=== PATIENT | male | born 1945 | race African-American/Black ===

== ENCOUNTER 2016-12-15 05:00 | Inpatient (IN) ==
--- NOTE | 2016-12-13 09:37 | Cardiothoracic History & Phys ---
History of Present Illness Chief complaint: Shortness of breath History of present illness: Mr. Blanco is a 71 year old male who presented to [facility] about 10 days ago with symptoms of shortness of breath and chest discomfort. He was found on initial examination to have suggestion of a right upper lobe pneumonia the patient was admitted for further treatment. He was admitted for pulmonary toilet and antibiotic therapy with significant improvement in his symptoms. Because of his history of possible exertionally related chest pain patient was advised to have cardiac catheterization which was carried out which demonstrated moderate to severe left main coronary disease and the presence of a totally occluded right coronary artery. Patient was advised to have bypass surgery and is transferred to our hospital for that purpose. Past medical history is significant and the patient has had a right nephrectomy for uncertain reasons but presumably for cancer. He has otherwise been in reasonably good health. He has no known allergies and does not drink alcohol or smoke cigarettes. He is on no cardiac medications at home. Review of systems is noncontributory and family history does show a history of cancer and heart disease. Physical examination: Patient is well-developed well-nourished -[place] man in no acute distress. Examination of head eyes ears nose and throat showed pupils are equal react to light extraocular motions are intact and the oropharynx is benign. Termination of the neck shows no masses and there is no thyromegaly and there are no bruits. Examination of the chest shows some diffuse rhonchi but otherwise is clear to percussion and auscultation. Examination of the heart reveals regular sinus rhythm with no murmurs or gallop rhythm. Examination of the abdomen shows no masses and there is no organomegaly appreciated. There is no tenderness. Examination extremities shows no cyanosis or edema. Examination of the neurological system is grossly within normal limits. Assessment: Coronary artery disease including left main coronary involvement. Plan: Coronary bypass surgery Saturday, December 17, 2016.
[~2016-12-15 05:00] MED LIST: DEXTROSE 50% 25 GM/50 ML VIAL IV PRN; GLUCAGON 1 MG VIAL IM PRN
[2016-12-15] MEDS ORDERED: SODIUM CHLORIDE 0.9% 1,000 ML IV SCH (10:00)
[2016-12-15 18:06] LABS: Basophils # 0.1 10*3/uL (0.0-0.2); Basophils % 0.9 % (0.0-0.8); Eosinophils # 0.2 10*3/uL (0.0-0.87); Eosinophils % 3.1 % (0.00-10.9); Hemoglobin 11.2 GM/DL (14.0-18.0); Immature Granulocytes % 0.1 %; Immature Granulocytes Absolute 0.01 #; Lymphocytes # 2.4 10*3/uL (1.4-4.0); Lymphocytes % 32.5 % (21.2-54.2); Mean Corpuscular HGB Conc 31.1 GM/DL (32-36); Mean Corpuscular Hemoglobin 27 PG (27-34); Mean Corpuscular Volume 87.2 FL (87-102); Mean Platelet Volume 10.3 FL (9.6-12.0); Monocytes # 1.2 10*3/uL (0.11-0.8); Monocytes % 16.6 % (1.7-12.7); Neutrophils # 3.5 10*3/uL (1.4-7.4); Neutrophils % 46.8 % (38.7-73.9); Platelet Count 383 T/CUMM (130-400); Red Blood Count 4.13 MC/CUMM (3.8-5.5); White Blood Count 7.5 T/CUMM (4-12)
[2016-12-15 18:36] LABS: Alanine Aminotransferase 68 U/L (16-61); Alkaline Phosphatase 94 U/L (45-117); Aspartate Amino Transferase 46 U/L (0-37); Bilirubin,Total < 0.39 MG/DL (0.2-1.0); Blood Urea Nitrogen 23 MG/DL (7-18); Calcium 8.5 MG/DL (8.5-10.1); Glucose 260 MG/DL (74-106); Osmolality,Calculated 276.5 MOS/KG (273-304); Potassium 4.6 MMOL/L (3.5-5.1); Sodium 132 MMOL/L (136-145); Total Protein 7.5 G/DL (6.4-8.3)
--- NOTE | 2016-12-15 18:48 | XRay Report ---
XR chest 2V Date: 12/15/2016 9:45 AM History: Coronary artery disease Comparison: None Technique: PA and lateral chest Findings: The heart is minimally enlarged with left ventricular prominence uncoiling of the aorta. Minimal relative elevation of the right hemidiaphragm. Probable chronic scarring in the lungs. Faint small noncalcified density in the right midlung zone. Unremarkable mediastinum with degenerative changes. Impression: Cardiomegaly with left ventricular prominence and uncoiling of the aorta which may be related to hypertensive cardiovascular disease. Probable chronic scarring scarring. Faint small noncalcified nodular density in the right midlung zone which may relate to chronic scarring . But follow-up chest x-ray is recommended for further evaluation of this small finding. PROCEDURE INTERPRETED AT [facility] DEPARTMENT OF RADIOLOGY Final Report Signed by: Dr. Shanta Hicks
[2016-12-15 19:54] LABS: Eosinophils 1 % (0-10); Lymphocytes 36 % (20-55); Platelet Estimate Normal; Segmented Neutrophils 53 % (50-85); Total Cells Counted 100
[2016-12-15] MEDS: CEFEPIME 1,000 MG in SODIUM CHLORIDE 0.9% 100 ML IV SCH (21:07)
--- NOTE | 2016-12-16 08:06 | Cardiothoracic Progress Note ---
Cardiothoracic Subjective Interval history: Patient is ready for bypass surgery in the morning. His chest x-ray looks clear to me and his blood work all his within normal limits. Exam (Progress Note) - Constitutional Vitals: Period Temp Pulse Resp BP Sys/Meza Pulse Ox Last 24 Hr 97.9 F-98.8 F 80-99 16-20 109-161/70-86 92-98 Result/EKG - Labs CBC & BMP: 12/15/16 17:04 12/15/16 17:04 Labs: Laboratory Results - last 24 hr 12/15/16 12/15/16 17:04 17:04 WBC 7.5 RBC 4.13 Hgb 11.2 L Hct 36.0 L MCV 87.2 MCH 27 MCHC 31.1 L RDW 14.0 Plt Count 383 MPV 10.3 Neut % (Auto) 46.8 Lymph % (Auto) 32.5 [facility] % (Auto) 16.6 H Eos % (Auto) 3.1 Baso % (Auto) 0.9 H Neut # (Auto) 3.5 Lymph # (Auto) 2.4 [facility] # (Auto) 1.2 H Eos # (Auto) 0.2 Baso # (Auto) 0.1 Total Counted 100 Immature Gran % 0.1 Nucleated RBC % 0.0 Immature Gran # 0.01 Segmented Neutrophils 53 Lymphocytes 36 Monocytes 10 Eosinophils 1 Nucleated RBCs # 0.00 Platelet Estimate Normal Sodium 132 L Potassium 4.6 Chloride 95 L Carbon Dioxide 30 Anion Gap 11.6 BUN 23 H Creatinine 1.50 H GFR Calculation 68 BUN/Creatinine Ratio 15.00 Glucose 260 H Calculated Osmolality 276.5 Calcium 8.5 Total Bilirubin < 0.39 AST 46 H ALT 68 H Alkaline Phosphatase 94 Total Protein 7.5 Albumin 3.0 L Globulin 4.5 H Albumin/Globulin Ratio 0.6 L Quality Measures - VTE Contraindication to Pharmacological VTE Prophylaxis: High Risk of Bleeding
[2016-12-16] MEDS ORDERED: PANTOPRAZOLE 40 MG TABLET PO ONE (08:25)
[2016-12-16] MEDS ORDERED: ALBUTEROL 2.5 MG/3 ML NEB RESP TX ONE (08:25)
[2016-12-16] MEDS ORDERED: LORazepam 1 MG TABLET PO ONE (08:25)
[2016-12-16] MEDS ORDERED: LACTATED RINGERS 1,000 ML IV SCH (08:30)
[2016-12-16] MEDS ORDERED: LACTULOSE 20 GM/30 ML UDCUP PO PRN (08:44)
[2016-12-16] MEDS: CEFEPIME 1,000 MG in SODIUM CHLORIDE 0.9% 100 ML IV SCH ×2 (09:13→22:45)
[2016-12-16] MEDS: CHLORHEXIDINE 0.12% ORAL RINSE 60 ML BOTTLE SWISH/SPIT SCH ×2 (09:14→21:00)
[2016-12-16] MEDS: CHLORHEXIDINE 4% SOLN 118 ML BOTTLE TOP SCH ×2 (20:59→23:00)
[2016-12-17] MEDS: CHLORHEXIDINE 4% SOLN 118 ML BOTTLE TOP SCH ×2 (04:09→13:29)
[2016-12-17] MEDS ORDERED: PAPAVERINE 60 MG/2 ML VIAL ONE (04:35)
[2016-12-17] MEDS ORDERED: VANCOMYCIN 1,000 MG VIAL ONE (04:35)
[2016-12-17] MEDS ORDERED: LORazepam 1 MG TABLET ONE (05:31)
[2016-12-17] MEDS ORDERED: PANTOPRAZOLE 40 MG TABLET PO ONE (05:31)
[2016-12-17] MEDS ORDERED: TISSUE ADHESIVE 1 EACH APPLICATOR TOP ONE (05:39)
[2016-12-17] MEDS ORDERED: CEFUROXIME INJ 1,500 MG in SODIUM CHLORIDE 0.9% 100 ML IV ONE (06:00)
[2016-12-17] MEDS ORDERED: ALBUTEROL 2.5 MG/3 ML NEB RESP TX ONE (06:00)
[2016-12-17] MEDS ORDERED: SODIUM CHLORIDE 0.9% 1,000 ML IV SCH (06:00)
[2016-12-17] MEDS ORDERED: AMINOCAPROIC ACID 5,000 MG/20 ML VIAL IV ONE ×2 (06:47→12:41)
[2016-12-17] MEDS ORDERED: NITROGLYCERIN 50 MG/250 ML BOTTLE IV ONE (06:47)
[2016-12-17] MEDS ORDERED: PHENYLEPHRINE 20 MG/250 ML PREMIX IV ONE (06:47)
[2016-12-17] MEDS ORDERED: MINERAL OIL/PETROLATUM OPH OINT 3.5 GM TUBE ONE ×2 (06:47→12:43)
[2016-12-17] MEDS ORDERED: HEPARIN 1,000 UNIT/1 ML VIAL ONE (06:47)
[2016-12-17] MEDS ORDERED: CALCIUM CHLORIDE 1,000 MG/10 ML SYRINGE IV ONE ×3 (06:47→12:41)
[2016-12-17] MEDS ORDERED: ETOMIDATE 20 MG/10 ML VIAL IV ONE ×2 (06:47→12:43)
[2016-12-17] MEDS ORDERED: VECURONIUM 10 MG VIAL IV ONE ×2 (06:47→12:43)
[2016-12-17] MEDS ORDERED: PHENYLEPHRINE DRIP 40 MG/250 ML PREMIX IV ONE (07:23)
[2016-12-17] MEDS ORDERED: NITROPRUSSIDE 50 MG/2 ML VIAL ONE ×2 (07:23→07:25)
[2016-12-17] MEDS ORDERED: POTASSIUM CHLORIDE RIDER 100 ML IV ONE (07:24)
[2016-12-17 07:47] LABS: ABG HCO3 26.2 MMOL/L (20-26); ABG PH 7.479 (7.35-7.45); ABG TCO2 22.9 MMOL/L (23-27); Glucose Heart Surgery 159 MG/DL (74-106); Hematocrit Heart Surgery 30.7 PERCENT (42-52); Hemoglobin Heart Surgery 9.9 G/DL (14.0-18.0); Ionized Calcium Arterial 1.13 MMOL/L (1.21-1.46); PH Patient Temp Arterial 7.479; Patient Temperature 37 CELCIUS; Potassium Heart/CVR 3.8 MMOL/L (3.5-5.1); Sodium Heart/CVR 136 MMOL/L (135-145)
[2016-12-17 07:57] LABS: Apearance,Urine CLEAR (Clear); Bilirubin,Urine Negative (Negative); Blood, Urine Negative (Negative); Glucose,Urine (UA) 50 mg/dL (Negative); Ketones,Urine Negative (Negative); Mucus,Urine Occasional /LPF (Occasional); Nitrite,Urine Negative (Negative); Protein,Urine Negative; RBC,Urine 1 /HPF (0-4); Squamous Epithelial Cell,Urine Occasional /HPF (0-10); Urine Color Straw (Yellow); Urine Specific Gravity 1.008 (1.001-1.035); Urine Urobilinogen < 2.0 EU/DL (0.2-1.0); WBC,Urine <1 /HPF (0-6)
[2016-12-17 09:07] LABS: Hemoglobin Heart Surgery 8.7 G/DL (14.0-18.0); PCO2 Patient Temp Venous 37.8 MM HG; PH Patient Temp Venous 7.478; PO2 Patient Temp Venous 39.7 MM HG; Potassium Heart/CVR 4.1 MMOL/L (3.5-5.1); VBG Base Excess 3.5 MEQ/L (0-4); VBG HCO3 28.2 MEQ/L (24-28); VBG PCO2 43.1 MMHG (41-51); VBG PH 7.433
[2016-12-17 09:41] LABS: Hematocrit Heart Surgery 25.6 PERCENT (42-52); Hemoglobin Heart Surgery 8.2 G/DL (14.0-18.0); PH Patient Temp Venous 7.509; PO2 Patient Temp Venous 32.6 MM HG; Potassium Heart/CVR 4.3 MMOL/L (3.5-5.1); VBG Base Excess 2.2 MEQ/L (0-4); VBG HCO3 26.1 MEQ/L (24-28); VBG Oxygen Saturation 80.9 %; VBG PCO2 37.6 MMHG (41-51); VBG PH 7.45; VBG PO2 43.1 MMHG (17-40)
[2016-12-17 10:13] LABS: Hematocrit Heart Surgery 26.4 PERCENT (42-52); Hemoglobin Heart Surgery 8.5 G/DL (14.0-18.0); PCO2 Patient Temp Venous 33.6 MM HG; PH Patient Temp Venous 7.471; PO2 Patient Temp Venous 36.6 MM HG; Potassium Heart/CVR 4.7 MMOL/L (3.5-5.1); VBG Base Excess 1.2 MEQ/L (0-4); VBG HCO3 25.2 MEQ/L (24-28); VBG Oxygen Saturation 76.7 %; VBG PCO2 35.3 MMHG (41-51); VBG PH 7.456; VBG PO2 39.2 MMHG (17-40)
[2016-12-17 10:51] LABS: ABG Base Excess -0.1 MMOL/L (-2.5-2.5); ABG HCO3 24.4 MMOL/L (20-26); ABG PCO2 37.3 MM HG (35-48); ABG TCO2 22.4 MMOL/L (23-27); Glucose Heart Surgery 267 MG/DL (74-106); Hematocrit Heart Surgery 26.7 PERCENT (42-52); Hemoglobin Heart Surgery 8.6 G/DL (14.0-18.0); Ionized Calcium Arterial 1.22 MMOL/L (1.21-1.46); PCO2 Patient Temp Arterial 37.3 MMHG; Patient Temperature 37 CELCIUS; Potassium Heart/CVR 4.1 MMOL/L (3.5-5.1); Sodium Heart/CVR 134 MMOL/L (135-145)
[2016-12-17] MEDS ORDERED: DEXTROSE 5% KCL 20 MEQ 20 MEQ/1,000 ML BAG IV ONE (10:53)
[2016-12-17] MEDS ORDERED: ALBUMIN 25% 25 GM/100 ML VIAL IV ONE (10:53)
[2016-12-17] MEDS ORDERED: PROTAMINE SULFATE 250 MG/25 ML VIAL IV ONE (10:53)
[2016-12-17] MEDS ORDERED: PHENYLEPHRINE DRIP 20 MG/250 ML PREMIX IV ONE ×2 (10:53→12:42)
[2016-12-17] MEDS ORDERED: SODIUM BICARBONATE 50 MEQ/50 ML SYRINGE IV ONE (10:53)
[2016-12-17] MEDS ORDERED: MAGNESIUM SULFATE 1 GM/2 ML VIAL ONE (10:53)
[2016-12-17] MEDS ORDERED: MANNITOL 12.5 GM/50 ML VIAL IV ONE (10:54)
[2016-12-17] MEDS ORDERED: HEPARIN 10,000 UNIT/10 ML VIAL ONE (10:54)
[2016-12-17] MEDS ORDERED: PROTAMINE SULFATE 50 MG/5 ML VIAL IV ONE ×3 (10:54→11:49)
[2016-12-17] MEDS ORDERED: methylPREDNISolone SOD SUC 1,000 MG/8 ML VIAL ONE (10:54)
[2016-12-17] MEDS ORDERED: FUROSEMIDE 20 MG/2 ML VIAL ONE (10:54)
[2016-12-17] MEDS ORDERED: POTASSIUM CHLORIDE 20 MEQ/10 ML VIAL ONE (10:55)
--- NOTE | 2016-12-17 11:17 | Hospitalist Consult Note ---
Assessment and Plan - Time spent with patient Time spent with patient: Greater than 30 minutes (1) Status post coronary artery bypass graft Status: Acute Assessment and plan: Mr. Blanco is a 71-year-old -Mal[place]ian male with history of diabetes and left nephrectomy due to kidney cancer admitted by Dr. Conner for coronary artery bypass graft. Patient's case has been discussed with Dr. Bustillo the attending hospitalist. Further recommendations to follow. Diabetes--patient's blood sugars are running high at this point in time. We will continue to monitor these. Start sliding scale insulin and restart his medicines when appropriate. We will go ahead and check an hemoglobin A1c. Hypertension--patient's blood pressures are elevated. We will continue to monitor these, feel he may have undiagnosed hypertension and he may be needed to start on something prior to discharge. Current Visit: Yes (2) Diabetes Status: Acute Current Visit: Yes (3) Hypertension Status: Acute Current Visit: Yes (4) Status post nephrectomy Status: Acute Current Visit: Yes History of Present Illness - Data of Consult Patient: new to practice Consult date: 12/17/16 Requesting Physician: Isiah Conner - Consult Narrative Reason for consult: medical management History of present illness: Mr. Blanco is a 71 year old -Mal[place]ian male with history of hypertension , diabetes, and left kidney cancer admitted by Dr. Conner from cardiothoracic surgery for coronary artery bypass grafting. Patient was already in surgery at the time of consultation so history was taken from well-versed family members that were present in the room. Collectively the brothers and sisters all state that patient lives in [place] and he was here in [place] to bury his that approximately 3 weeks ago. They state that 4 days later his 's father as well and was buried. They state he presented to [facility] not feeling well and was admitted with a right upper lobe pneumonia. He was treated with pulmonary toilet and antibiotic therapy and had improvement in his systems. Because he complained of a history of possible exertional related chest pain he was advised to have a cardiac cath which was done at [facility] the heart cath demonstrated moderate to severe left main coronary disease in the presence of a totally occluded right coronary artery. Patient was sent to [facility] for bypass surgery by Dr. Conner. Patient quit smoking and drinking approximately 30 years ago per family. Otherwise he was in relatively good health. His admission vital signs show a temp of 99.1 with blood pressure and heart rate stable. His CBC shows a mild anemia at 11.1/36. Sodium low at 132, creatinine elevated at 1.5, blood sugars running 175-260. He does have a mild elevation in his AST/ALT of 46/68 with a normal T bili. UA is negative. Dr. Conner has asked hospital medicine to assist with patient's medical management status post bypass graft. Patient's case has been discussed with Dr. Bustillo, he will be the attending hospitalist. CC: Isiah Conner MD - Home Medications and Allergies Home Medications: Home Medications Medication Instructions Recorded Confirmed Type Glimepiride 4 mg PO DAILY 12/15/16 12/15/16 History Allergies/Adverse Reactions: Allergies Allergy/AdvReac Type Severity Reaction Status Date / Time No Known Allergies Allergy Verified 12/15/16 14:50 Medical,Surgical,& Family Hx - Medical History Cardio: History of: Hypertension Endocrine: History of: Diabetes Mellitus (IDDM) Musculoskeletal: No history of: Amputation - Surgical History Thoracic Surgeries: Surgical HX of;: Kidney (Renal Surgery) Patient denies;: Organ Transplant Orthopedic Surgeries: Surgical HX of;: Orthopedic Surgery - Family History Family History: Reports;: Family Cancer, Family Heart Disease - Social History Smoking Status: Former smoker Have you smoked in the last 12 months: No Frequency of Alcohol Use: None Type of Drug Use: None Marital Status: Functional capacity: independent ambulation ROS unobtainable: due to endotracheal tube Exam - Constitutional Vitals: Period Temp Pulse Resp BP Sys/Meza Pulse Ox Last 24 Hr 97.3 F-99.1 F 85-97 16-22 125-151/78-95 95-99 Exam: Constitutional System: Sedated on the vent Head: Normocephalic, atraumatic. Ears, Nose and Throat System: No evidence of Otitis or Mastoiditis. No epistaxis or discharge Eyes System: Pupils equal, round, and reactive. Neck: Supple, without adenopathy, [No] jugular venous distention. No thyromegaly , neck mass, or prior surgery apparent. Respiratory System: Chest [clear] to auscultation. Cardiovascular System: Heart with [regular] rate and rhythm. [No] murmur. GI System: Abdomen [soft], unable to assess tenderness. [Normo]active bowel sounds present. Musculoskeletal System: limbs with [no] pedal edema. [Full] distal pulses. Neurological System: Unable to obtain Psychiatric System: Unable to obtain Results - Labs CBC & BMP: 12/17/16 11:50 12/17/16 11:50 Lab Results: I have reviewed the past 24 hour labs - Diagnostic Findings Procedure: Chest x-ray: report reviewed by me (Cardiomegaly with left ventricular prominence and uncoiling of the aorta which may be related to hypertensive cardiovascular disease. Chronic scarring. Small noncalcified nodular density in right midlung zone.) Quality Measures - VTE Contraindication to Pharmacological VTE Prophylaxis: High Risk of Bleeding
[2016-12-17] MEDS: SODIUM CHLORIDE 0.45% 1,000 ML IV SCH (11:35)
[2016-12-17] MEDS ORDERED: ONDANSETRON 4 MG/2 ML VIAL IV PRN (11:37)
[2016-12-17] MEDS ORDERED: ACETAMINOPHEN 650 MG SUPP RECTAL PRN (11:37)
[2016-12-17] MEDS ORDERED: CALCIUM CHLORIDE 1,000 MG/10 ML SYRINGE IV PRN (11:37)
[2016-12-17] MEDS ORDERED: DEXTROSE 50% 25 GM/50 ML VIAL IV PRN ×2 (11:37)
[2016-12-17] MEDS ORDERED: PHENYLEPHRINE DRIP 40 MG/250 ML PREMIX IV PRN (11:37)
[2016-12-17] MEDS ORDERED: MAGNESIUM SULF RIDER 4 GM in PREMIX 1 EACH IV PRN (11:37)
[2016-12-17] MEDS ORDERED: POTASSIUM CHLORIDE RIDER 10 MEQ in PREMIX 1 EACH IV PRN (11:37)
[2016-12-17] MEDS ORDERED: MIDAZOLAM 10 MG/2 ML VIAL IV PRN (11:37)
[2016-12-17] MEDS ORDERED: VECURONIUM 10 MG VIAL IV PRN ×2 (11:37)
[2016-12-17] MEDS ORDERED: LACTATED RINGERS 250 ML IV PRN (11:37)
[2016-12-17] MEDS ORDERED: MORPHINE 10 MG/1 ML VIAL IV PRN (11:37)
[2016-12-17] MEDS ORDERED: MAGNESIUM SULF RIDER 2 GM in PREMIX 1 EACH IV PRN (11:37)
[2016-12-17] MEDS ORDERED: INSULIN REGULAR 100 UNIT/ML IV ONE (11:37)
--- NOTE | 2016-12-17 11:44 | Operative Note ---
Date of procedure: 12/17/16 Pre-op diagnosis: Coronary artery disease Post-op diagnosis: same Procedure: Procedure: Coronary bypass grafting 3 with an internal mammary graft to the anterior descending coronary artery saphenous vein graft to the obtuse marginal and right posterior descending coronary arteries. Findings: Patient is a 71-year-old man who was admitted to [facility] with a diagnosis of pneumonia. During the course of his workup he was suspected of having ischemic coronary disease and underwent cardiac catheterization confirming a diagnosis of severe three-vessel coronary artery disease. Patient was advised to have bypass surgery was transferred for that purpose. At the time of surgery left ventricular function was noted to be essentially within normal limits and an internal mammary graft was placed to the anterior descending coronary artery which was a large vessel and free of disease at the site of anastomosis. Saphenous vein grafts were placed to the obtuse marginal and right posterior descending coronary vessels which were both of adequate size and free of disease at the site of anastomosis. Patient tolerated the procedure well and was returned to recovery in satisfactory condition. Procedure: Patient was brought to the operating room placed on the operating table in supine position. After satisfactory induction of general anesthesia the chest abdomen and legs were prepped and draped in sterile fashion. Greater saphenous vein was harvested from the left lower leg and prepared as an arterial graft. Incision in the leg was closed with 3-0 subcutaneous Monocryl and 3-0 subcuticular Monocryl. Standard sternotomy incision was made and the sternum was divided and the heart suspended in a pericardial cradle. Left internal mammary artery was dissected free and prepared as an arterial graft. Patient was prepared for cardiopulmonary bypass with systemic heparinization and cannulation of the ascending aorta and right atrium. Cardiopulmonary bypass was begun and aorta was crossclamped and the heart arrested with cardioplegia solution injected into the aortic root. Heart was protected during the period of crossclamping with topical saline slush. Distal anastomoses were constructed as noted above and then the aorta was unclamped reestablishing cardiac action. Proximal anastomoses were constructed between the influenza of the saphenous vein grafts in the ascending aorta. Following this the patient was weaned from cardiopulmonary bypass without difficulty and the heparin effect reversed with protamine and decannulation carried out with a defects in the ascending aorta and right atrium closed with 3-0 Prolene. Operative field was inspected for hemostasis and when this was considered adequate the incision was closed with interrupted stainless steel wire and the sternum and 0 Monocryl in the presternal fascia. Skin was closed with running 3 -0 subcuticular Monocryl. 2 chest tubes were left in the anterior mediastinum and brought out through separate stab incisions. Sterile dressings were applied and the patient was returned to recovery in satisfactory condition. Surgeon / Physician: Isiah Conner Estimated blood loss: other (Unable to determine because of cardiopulmonary bypass) Condition: stable Disposition: ICU Results - Labs CBC & BMP: 12/17/16 10:51 12/15/16 17:04 Discharge Plan - Discharge Medications No Action Glimepiride 4 mg PO DAILY - Follow Up or Referral - Forms/Instructions
[2016-12-17] MEDS: NITROPRUSSIDE 100 MG in DEXTROSE 5% 250 ML IV PRN (11:45)
[2016-12-17 11:59] LABS: ABG Base Excess 0.5 MMOL/L (-2.5-2.5); ABG HCO3 24.9 MMOL/L (20-26); ABG PCO2 31.1 MM HG (35-48); ABG PH 7.483 (7.35-7.45); ABG TCO2 21.3 MMOL/L (23-27); Glucose Heart Surgery 262 MG/DL (74-106); Hematocrit Heart Surgery 29.2 PERCENT (42-52); Hemoglobin Heart Surgery 9.4 G/DL (14.0-18.0); Potassium Heart/CVR 4.3 MMOL/L (3.5-5.1)
[2016-12-17] MEDS ORDERED: INSULIN REGULAR DRIP 100 ML IV SCH (12:00)
[2016-12-17] MEDS ORDERED: SODIUM CHLORIDE 0.45% 1,000 ML IV SCH (12:00)
[2016-12-17 12:05] LABS: Basophils % 0.3 % (0.0-0.8); Eosinophils # 0.1 10*3/uL (0.0-0.87); Eosinophils % 1.1 % (0.00-10.9); Hematocrit 30.4 VOL% (42.0-52.0); Hemoglobin 9.7 GM/DL (14.0-18.0); Immature Granulocytes % 0.6 %; Immature Granulocytes Absolute 0.06 #; Lymphocytes # 1.3 10*3/uL (1.4-4.0); Lymphocytes % 12.9 % (21.2-54.2); Mean Corpuscular HGB Conc 31.9 GM/DL (32-36); Mean Corpuscular Hemoglobin 28 PG (27-34); Mean Corpuscular Volume 87.1 FL (87-102); Mean Platelet Volume 9.6 FL (9.6-12.0); Monocytes # 0.6 10*3/uL (0.11-0.8); Neutrophils # 8.1 10*3/uL (1.4-7.4); Neutrophils % 79.1 % (38.7-73.9); Platelet Count 246 T/CUMM (130-400); Red Blood Count 3.49 MC/CUMM (3.8-5.5); Red Cell Distribution Width 13.8 % (9.3-17.3); White Blood Count 10.3 T/CUMM (4-12)
[2016-12-17 12:10] LABS: INR 1.3; PT Patient Result 14.2 SECS
[2016-12-17] MEDS: POTASSIUM CHLORIDE RIDER 20 MEQ in PREMIX 1 EACH IV PRN ×3 (12:30→17:21)
[2016-12-17 12:39] LABS: Albumin 2.4 G/DL (3.4-5.0); Bilirubin,Total 1.1 MG/DL (0.2-1.0); Calcium 8.1 MG/DL (8.5-10.1); Magnesium 1.8 MG/DL (1.8-2.4); Osmolality,Calculated 287.5 MOS/KG (273-304); Potassium 4.4 MMOL/L (3.5-5.1); Total Protein 5.4 G/DL (6.4-8.3)
[2016-12-17] MEDS ORDERED: SEVOFLURANE 1 UNIT/15 MINUTE INH ONE (12:42)
[2016-12-17] MEDS ORDERED: HEPARIN/NACL 0.9% 2 UNITS/ML 500 ML IV ONE (12:42)
[2016-12-17] MEDS ORDERED: NITROGLYCERIN DRIP 50 MG/250 ML BOTTLE IV ONE ×2 (12:43→12:53)
[2016-12-17] MEDS ORDERED: LACTATED RINGERS 1,000 ML IV ONE (12:43)
[2016-12-17] MEDS ORDERED: SODIUM CHLORIDE 0.9% 250 ML IV ONE (12:43)
[2016-12-17] MEDS ORDERED: SODIUM CHLORIDE 0.9% 2,000 ML IV ONE (12:43)
[2016-12-17] MEDS ORDERED: MIDAZOLAM 10 MG/2 ML VIAL ONE ×2 (12:43)
[2016-12-17] MEDS ORDERED: SUFentanil 250 MCG/5 ML AMP ONE (12:43)
[2016-12-17] MEDS ORDERED: SODIUM CHLORIDE 0.9% 100 ML IV ONE (12:43)
[2016-12-17 12:54] LABS: CKMB % 5.9 %
[2016-12-17 13:02] LABS: Troponin I Only 4.29 NG/ML (0.00-0.045)
[2016-12-17] MEDS: KETOROLAC 30 MG/1 ML VIAL IV SCH ×2 (13:06→18:13)
--- NOTE | 2016-12-17 13:09 | XRay Report ---
XR chest 1V portable Indication: Cardiac surgery, coronary artery disease, line placement Comparison: 15 December 2016 Findings: The heart and mediastinum are within normal limits of size and configuration with cardiac surgery changes. Lines and tubes appear appropriate in position. The pulmonary vascularity is increased. No lung infiltrates, effusions, pneumothorax or other abnormality is demonstrated. Impression: Interval cardiac surgery. Increased vascularity may indicate cardiac decompensation. PROCEDURE INTERPRETED AT [facility] DEPARTMENT OF RADIOLOGY Final Report Signed by: Dr. Jaden Rodrigues
[2016-12-17] MEDS: CHLORHEXIDINE 0.12% ORAL RINSE 60 ML BOTTLE SWISH/SPIT SCH ×2 (13:29→21:53)
[2016-12-17] MEDS: CEFEPIME 1,000 MG in SODIUM CHLORIDE 0.9% 100 ML IV SCH (13:29)
[2016-12-17 13:35] LABS: ABG Base Excess -3.8 MMOL/L (-2.5-2.5); ABG HCO3 21.3 MMOL/L (20-26); ABG Oxygen Saturation 99.6 % (95-100); ABG PCO2 26.1 MM HG (35-48); ABG TCO2 17.5 MMOL/L (23-27); Glucose Heart Surgery 202 MG/DL (74-106); Hematocrit Heart Surgery 26.9 PERCENT (42-52); Hemoglobin Heart Surgery 8.7 G/DL (14.0-18.0); Potassium Heart/CVR 3.7 MMOL/L (3.5-5.1)
[2016-12-17] MEDS: NITROGLYCERIN DRIP 50 MG/250 ML BOTTLE IV SCH (13:51)
[2016-12-17] MEDS: ALBUMIN 5% 12.5 GM in PREMIX 1 EACH IV PRN ×5 (13:54→23:05)
[2016-12-17] MEDS ORDERED: INSULIN LISPRO 100 UNIT/ML SUBCUT SCH (14:00)
[2016-12-17 14:23] LABS: ABG Base Excess -1.9 MMOL/L (-2.5-2.5); ABG HCO3 22.9 MMOL/L (20-26); ABG Oxygen Saturation 99.6 % (95-100); ABG PCO2 27.7 MM HG (35-48); ABG PH 7.482 (7.35-7.45); ABG TCO2 18.8 MMOL/L (23-27); Glucose Heart Surgery 208 MG/DL (74-106); Hematocrit Heart Surgery 29.8 PERCENT (42-52); Hemoglobin Heart Surgery 9.6 G/DL (14.0-18.0); Potassium Heart/CVR 4.1 MMOL/L (3.5-5.1)
[2016-12-17] MEDS: INSULIN REGULAR 100 UNIT/ML IV PRN (14:25)
[2016-12-17 15:56] LABS: ABG Base Excess -1.8 MMOL/L (-2.5-2.5); ABG HCO3 22.9 MMOL/L (20-26); ABG Oxygen Saturation 99.4 % (95-100); ABG PCO2 28.4 MM HG (35-48); ABG PH 7.475 (7.35-7.45); Glucose Heart Surgery 139 MG/DL (74-106); Hematocrit Heart Surgery 29.8 PERCENT (42-52); Hemoglobin Heart Surgery 9.6 G/DL (14.0-18.0); Potassium Heart/CVR 4.2 MMOL/L (3.5-5.1)
[2016-12-17 16:57] LABS: ABG Base Excess -1.6 MMOL/L (-2.5-2.5); ABG Oxygen Saturation 99.3 % (95-100); ABG PCO2 32.4 MM HG (35-48); ABG PH 7.438 (7.35-7.45); Glucose Heart Surgery 112 MG/DL (74-106); Hematocrit Heart Surgery 29.3 PERCENT (42-52); Hemoglobin Heart Surgery 9.5 G/DL (14.0-18.0)
[2016-12-17] MEDS: MIDAZOLAM 2 MG/2 ML VIAL IV PRN ×3 (18:11→22:17)
[2016-12-17 19:14] LABS: ABG Base Excess -1.7 MMOL/L (-2.5-2.5); ABG Oxygen Saturation 98.9 % (95-100); ABG PCO2 28.4 MM HG (35-48); ABG PH 7.475 (7.35-7.45); ABG TCO2 18.9 MMOL/L (23-27); Glucose Heart Surgery 173 MG/DL (74-106); Hematocrit Heart Surgery 31.3 PERCENT (42-52); Hemoglobin Heart Surgery 10.1 G/DL (14.0-18.0); Potassium Heart/CVR 4.5 MMOL/L (3.5-5.1)
--- NOTE | 2016-12-17 19:52 | Anesthesia Post-Op ---
Anesthesia Post OP - Post Ansesthetic Evaluation Patient seen in post op: Yes Resp: within normal limits (vent) CV: within normal limits Mental: within normal limits (sedated) Temp: within normal limits Godw-[id number]-[id number]: within normal limits Nausea and Vomiting: within normal limits Pain: within normal limits
[2016-12-17] MEDS: CEFUROXIME INJ 1,500 MG in SODIUM CHLORIDE 0.9% 100 ML IV SCH (20:40)
[2016-12-17] MEDS ORDERED: PROPOFOL 1,000 MG/100 ML BOTTLE IV ONE (21:48)
[2016-12-17 21:58] LABS: CKMB % 4.3 %
[2016-12-17 21:59] LABS: Troponin I Only 4.86 NG/ML (0.00-0.045)
[2016-12-17] MEDS ORDERED: FUROSEMIDE 40 MG/4 ML VIAL IV PRN (22:48)
[2016-12-17] MEDS ORDERED: PROPOFOL 1,000 MG/100 ML BOTTLE IV SCH (23:00)
[2016-12-17] MEDS ORDERED: FUROSEMIDE 40 MG/4 ML VIAL ONE (23:40)
[2016-12-18 00:19] LABS: ABG Base Excess 0.1 MMOL/L (-2.5-2.5); ABG HCO3 22.4 MMOL/L (20-26); ABG Oxygen Saturation 98.3 % (95-100); ABG PCO2 28.6 MM HG (35-48); ABG PH 7.511 (7.35-7.45); ABG PO2 126.1 MM HG (80-95); ABG TCO2 23.2 MMOL/L (23-27); Glucose Heart Surgery 129 MG/DL (74-106); Hemoglobin Heart Surgery 10.8 G/DL (14.0-18.0); Potassium Heart/CVR 4.2 MMOL/L (3.5-5.1)
[2016-12-18] MEDS: KETOROLAC 30 MG/1 ML VIAL IV SCH ×4 (00:29→17:40)
[2016-12-18] MEDS: POTASSIUM CHLORIDE RIDER 20 MEQ in PREMIX 1 EACH IV PRN ×3 (00:36→05:35)
[2016-12-18 02:35] LABS: ABG Base Excess -0.9 MMOL/L (-2.5-2.5); ABG HCO3 22.6 MMOL/L (20-26); ABG Oxygen Saturation 98.5 % (95-100); ABG PCO2 33.7 MM HG (35-48); ABG PH 7.445 (7.35-7.45); ABG TCO2 23.7 MMOL/L (23-27); Glucose Heart Surgery 166 MG/DL (74-106); Hemoglobin Heart Surgery 11.2 G/DL (14.0-18.0); Potassium Heart/CVR 4.6 MMOL/L (3.5-5.1)
[2016-12-18 03:13] LABS: ABG Oxygen Saturation 98.2 % (95-100); ABG PCO2 34.7 MM HG (35-48); ABG PO2 128.6 MM HG (80-95); ABG TCO2 23.1 MMOL/L (23-27); Glucose Heart Surgery 178 MG/DL (74-106); Hemoglobin Heart Surgery 11.3 G/DL (14.0-18.0); Potassium Heart/CVR 4.4 MMOL/L (3.5-5.1)
[2016-12-18 03:18] LABS: Basophils % 0.1 % (0.0-0.8); Hematocrit 32.4 VOL% (42.0-52.0); Hemoglobin 10.4 GM/DL (14.0-18.0); Immature Granulocytes % 0.2 %; Immature Granulocytes Absolute 0.03 #; Lymphocytes # 1.4 10*3/uL (1.4-4.0); Lymphocytes % 10.9 % (21.2-54.2); Mean Corpuscular HGB Conc 32.1 GM/DL (32-36); Mean Corpuscular Hemoglobin 28 PG (27-34); Mean Corpuscular Volume 87.3 FL (87-102); Mean Platelet Volume 9.9 FL (9.6-12.0); Monocytes # 0.6 10*3/uL (0.11-0.8); Monocytes % 4.9 % (1.7-12.7); Neutrophils # 10.5 10*3/uL (1.4-7.4); Neutrophils % 83.9 % (38.7-73.9); Platelet Count 206 T/CUMM (130-400); Red Blood Count 3.71 MC/CUMM (3.8-5.5); Red Cell Distribution Width 14.1 % (9.3-17.3); White Blood Count 12.5 T/CUMM (4-12)
[2016-12-18] MEDS: MORPHINE 2 MG/1 ML SYRINGE IV PRN (03:42)
[2016-12-18 03:52] LABS: Troponin I Only 4.32 NG/ML (0.00-0.045)
[2016-12-18 03:59] LABS: Albumin 3.1 G/DL (3.4-5.0); Bilirubin,Direct 0.4 MG/DL (0.0-0.20); Bilirubin,Total 1.3 MG/DL (0.2-1.0); Calcium 8.1 MG/DL (8.5-10.1); Magnesium 1.6 MG/DL (1.8-2.4); Osmolality,Calculated 287.3 MOS/KG (273-304); Potassium 4.5 MMOL/L (3.5-5.1); Total Protein 5.9 G/DL (6.4-8.3)
[2016-12-18 05:07] LABS: ABG Base Excess -2.9 MMOL/L (-2.5-2.5); ABG Oxygen Saturation 98.6 % (95-100); ABG PCO2 38.7 MM HG (35-48); ABG PH 7.366 (7.35-7.45); ABG TCO2 20.1 MMOL/L (23-27); Glucose Heart Surgery 200 MG/DL (74-106); Hematocrit Heart Surgery 32.4 PERCENT (42-52); Hemoglobin Heart Surgery 10.5 G/DL (14.0-18.0); Potassium Heart/CVR 4.2 MMOL/L (3.5-5.1)
[2016-12-18 05:35] LABS: Platelet Estimate Normal
[2016-12-18] MEDS: INSULIN REGULAR 100 UNIT/ML IV PRN (06:14)
--- NOTE | 2016-12-18 06:18 | Cardiothoracic Progress Note ---
Cardiothoracic Subjective Interval history: Patient is awake and responsive but still intubated. He was confused and disoriented upon awakening during the night but appears much better this morning. He is weaning from the ventilator. Vital signs have been stable and his cardiac output is 4 L to 5 L/min. Blood gases are satisfactory. Urine output has been good and creatinine is 1.4 which is around baseline. Chest tube drainage is minimal but I am going to wait until he is off the ventilator to remove his chest tubes. We will keep in intensive care for now until he is weaned from the ventilator. Exam (Progress Note) - Constitutional Vitals: Period Temp Pulse Resp BP Sys/Meza Pulse Ox Last 24 Hr 96.8 F-98.8 F 76-91 10-15 106-159/48-90 97-99 Result/EKG - Labs CBC & BMP: 12/18/16 03:00 12/18/16 03:00 Labs: Laboratory Results - last 24 hr 12/16/16 12/17/16 12/17/16 09:16 07:30 07:42 WBC RBC Hgb Hct MCV MCH MCHC RDW Plt Count 93 L D MPV Neut % (Auto) Lymph % (Auto) [place] % (Auto) Eos % (Auto) Baso % (Auto) Neut # (Auto) Lymph # (Auto) [place] # (Auto) Eos # (Auto) Baso # (Auto) Immature Gran % Nucleated RBC % Immature Gran # Nucleated RBCs # Platelet Estimate Anisocytosis INR PT Patient/Control Mix Circ Anticoag PTT Patient Temperature ABG pH ABG pH at Pt Temp ABG pCO2 ABG pCO2 at Pt Temp ABG pO2 ABG pO2 at Pt Temp ABG HCO3 ABG Total CO2 ABG O2 Saturation ABG Base Excess ABG Sodium VBG pH VBG pCO2 VBG pO2 VBG HCO3 VBG Total CO2 VBG O2 Saturation VBG Base Excess Hemoglobin Hematocrit Potassium Glucose Ionized Calcium FiO2 Sodium Chloride Carbon Dioxide Anion Gap BUN Creatinine GFR Calculation BUN/Creatinine Ratio Calculated Osmolality Calcium Venous Ioniz Calcium Magnesium Total Bilirubin Direct Bilirubin AST ALT Alkaline Phosphatase Total Creatine Kinase CK-MB (CK-2) CK and CKMB Interp Troponin I Total Protein Albumin Globulin Albumin/Globulin Ratio Urine Color Straw Urine Appearance Clear Urine pH 7.0 Ur Specific [place] 1.008 Urine Protein Negative Urine Glucose (UA) 50 Urine Ketones Negative Urine Blood Negative Urine Nitrate Negative Urine Bilirubin Negative Urine Urobilinogen < 2.0 H Urine Leukocytes Negative Urine RBC 1 Urine WBC <1 Ur Squamous Epith Cells Occasional Urine Mucus Occasional Ur Culture Indicated? Not indicated Blood Type A POSITIVE Antibody Screen Negative Crossmatch See Detail 12/17/16 12/17/16 12/17/16 07:42 09:05 09:35 WBC RBC Hgb Hct MCV MCH MCHC RDW Plt Count MPV Neut % (Auto) Lymph % (Auto) [place] % (Auto) Eos % (Auto) Baso % (Auto) Neut # (Auto) Lymph # (Auto) [place] # (Auto) Eos # (Auto) Baso # (Auto) Immature Gran % Nucleated RBC % Immature Gran # Nucleated RBCs # Platelet Estimate Anisocytosis INR PT Patient/Control Mix Circ Anticoag PTT Patient Temperature 37 34 33 ABG pH 7.479 H ABG pH at Pt Temp 7.479 7.478 7.509 ABG pCO2 34.0 L ABG pCO2 at Pt Temp 34.0 37.8 31.0 ABG pO2 481.0 H ABG pO2 at Pt Temp 481.0 39.7 32.6 ABG HCO3 26.2 H ABG Total CO2 22.9 L ABG O2 Saturation 100.0 ABG Base Excess 2.0 ABG Sodium 136 130 L 132 L VBG pH 7.433 7.450 VBG pCO2 43.1 37.6 L VBG pO2 49.0 H 43.1 H VBG HCO3 28.2 H 26.1 VBG Total CO2 29.5 24.3 VBG O2 Saturation 84.0 80.9 VBG Base Excess 3.5 2.2 Hemoglobin 9.9 L 8.7 L 8.2 L Hematocrit 30.7 L 26.0 L 25.6 L Potassium 3.8 4.1 4.3 Glucose 159 H 235 H 271 H Ionized Calcium 1.13 L FiO2 80.00 80.00 Sodium Chloride Carbon Dioxide Anion Gap BUN Creatinine GFR Calculation BUN/Creatinine Ratio Calculated Osmolality Calcium Venous Ioniz Calcium 0.96 1.03 L Magnesium Total Bilirubin Direct Bilirubin AST ALT Alkaline Phosphatase Total Creatine Kinase CK-MB (CK-2) CK and CKMB Interp Troponin I Total Protein Albumin Globulin Albumin/Globulin Ratio Urine Color Urine Appearance Urine pH Ur Specific [place] Urine Protein Urine Glucose (UA) Urine Ketones Urine Blood Urine Nitrate Urine Bilirubin Urine Urobilinogen Urine Leukocytes Urine RBC Urine WBC Ur Squamous Epith Cells Urine Mucus Ur Culture Indicated? Blood Type Antibody Screen Crossmatch 12/17/16 12/17/16 12/17/16 10:05 10:51 10:51 WBC RBC Hgb Hct MCV MCH MCHC RDW Plt Count 163 D MPV Neut % (Auto) Lymph % (Auto) [place] % (Auto) Eos % (Auto) Baso % (Auto) Neut # (Auto) Lymph # (Auto) [place] # (Auto) Eos # (Auto) Baso # (Auto) Immature Gran % Nucleated RBC % Immature Gran # Nucleated RBCs # Platelet Estimate Anisocytosis INR PT Patient/Control Mix Circ Anticoag PTT Patient Temperature 36 37 ABG pH 7.420 ABG pH at Pt Temp 7.471 7.420 ABG pCO2 37.3 ABG pCO2 at Pt Temp 33.6 37.3 ABG pO2 422.0 H ABG pO2 at Pt Temp 36.6 422.0 ABG HCO3 24.4 ABG Total CO2 22.4 L ABG O2 Saturation 100.0 ABG Base Excess -0.1 ABG Sodium 133 L 134 L VBG pH 7.456 VBG pCO2 35.3 L VBG pO2 39.2 VBG HCO3 25.2 VBG Total CO2 23.1 VBG O2 Saturation 76.7 VBG Base Excess 1.2 Hemoglobin 8.5 L 8.6 L Hematocrit 26.4 L 26.7 L Potassium 4.7 4.1 Glucose 274 H 267 H Ionized Calcium 1.22 FiO2 80.00 Sodium Chloride Carbon Dioxide Anion Gap BUN Creatinine GFR Calculation BUN/Creatinine Ratio Calculated Osmolality Calcium Venous Ioniz Calcium 1.02 L Magnesium Total Bilirubin Direct Bilirubin AST ALT Alkaline Phosphatase Total Creatine Kinase CK-MB (CK-2) CK and CKMB Interp Troponin I Total Protein Albumin Globulin Albumin/Globulin Ratio Urine Color Urine Appearance Urine pH Ur Specific [place] Urine Protein Urine Glucose (UA) Urine Ketones Urine Blood Urine Nitrate Urine Bilirubin Urine Urobilinogen Urine Leukocytes Urine RBC Urine WBC Ur Squamous Epith Cells Urine Mucus Ur Culture Indicated? Blood Type Antibody Screen Crossmatch 12/17/16 12/17/16 12/17/16 11:50 11:50 11:50 WBC 10.3 D RBC 3.49 L Hgb 9.7 L Hct 30.4 L MCV 87.1 MCH 28 MCHC 31.9 L RDW 13.8 Plt Count 246 D MPV 9.6 Neut % (Auto) 79.1 H Lymph % (Auto) 12.9 L [place] % (Auto) 6.0 Eos % (Auto) 1.1 Baso % (Auto) 0.3 Neut # (Auto) 8.1 H Lymph # (Auto) 1.3 L [place] # (Auto) 0.6 Eos # (Auto) 0.1 Baso # (Auto) 0.0 Immature Gran % 0.6 Nucleated RBC % 0.0 Immature Gran # 0.06 Nucleated RBCs # 0.00 Platelet Estimate Anisocytosis INR 1.3 PT Patient/Control Mix 14.2 Circ Anticoag PTT 37.0 Patient Temperature ABG pH ABG pH at Pt Temp ABG pCO2 ABG pCO2 at Pt Temp ABG pO2 ABG pO2 at Pt Temp ABG HCO3 ABG Total CO2 ABG O2 Saturation ABG Base Excess ABG Sodium VBG pH VBG pCO2 VBG pO2 VBG HCO3 VBG Total CO2 VBG O2 Saturation VBG Base Excess Hemoglobin Hematocrit Potassium 4.4 Glucose 265 H Ionized Calcium FiO2 Sodium 139 Chloride 105 Carbon Dioxide 25 Anion Gap 13.4 BUN 17 Creatinine 1.30 GFR Calculation 81 BUN/Creatinine Ratio 13.00 Calculated Osmolality 287.5 Calcium 8.1 L Venous Ioniz Calcium Magnesium 1.8 Total Bilirubin 1.10 H Direct Bilirubin AST 43 H ALT 45 Alkaline Phosphatase 68 Total Creatine Kinase CK-MB (CK-2) CK and CKMB Interp Troponin I Total Protein 5.4 L Albumin 2.4 L Globulin 3.0 Albumin/Globulin Ratio 0.8 L Urine Color Urine Appearance Urine pH Ur Specific [place] Urine Protein Urine Glucose (UA) Urine Ketones Urine Blood Urine Nitrate Urine Bilirubin Urine Urobilinogen Urine Leukocytes Urine RBC Urine WBC Ur Squamous Epith Cells Urine Mucus Ur Culture Indicated? Blood Type Antibody Screen Crossmatch 12/17/16 12/17/16 12/17/16 11:50 11:50 13:27 WBC RBC Hgb Hct MCV MCH MCHC RDW Plt Count MPV Neut % (Auto) Lymph % (Auto) [place] % (Auto) Eos % (Auto) Baso % (Auto) Neut # (Auto) Lymph # (Auto) [place] # (Auto) Eos # (Auto) Baso # (Auto) Immature Gran % Nucleated RBC % Immature Gran # Nucleated RBCs # Platelet Estimate Anisocytosis INR PT Patient/Control Mix Circ Anticoag PTT Patient Temperature ABG pH 7.483 H 7.470 H ABG pH at Pt Temp ABG pCO2 31.1 L 26.1 L ABG pCO2 at Pt Temp ABG pO2 347.0 H 194.0 H ABG pO2 at Pt Temp ABG HCO3 24.9 21.3 ABG Total CO2 21.3 L 17.5 L ABG O2 Saturation 100.0 99.6 ABG Base Excess 0.5 -3.8 L ABG Sodium VBG pH VBG pCO2 VBG pO2 VBG HCO3 VBG Total CO2 VBG O2 Saturation VBG Base Excess Hemoglobin 9.4 L 8.7 L Hematocrit 29.2 L 26.9 L Potassium 4.3 3.7 Glucose 262 H 202 H Ionized Calcium FiO2 Sodium Chloride Carbon Dioxide Anion Gap BUN Creatinine GFR Calculation BUN/Creatinine Ratio Calculated Osmolality Calcium Venous Ioniz Calcium Magnesium Total Bilirubin Direct Bilirubin AST ALT Alkaline Phosphatase Total Creatine Kinase 285 CK-MB (CK-2) 16.8 H CK and CKMB Interp 5.9 Troponin I 4.290 H Total Protein Albumin Globulin Albumin/Globulin Ratio Urine Color Urine Appearance Urine pH Ur Specific [place] Urine Protein Urine Glucose (UA) Urine Ketones Urine Blood Urine Nitrate Urine Bilirubin Urine Urobilinogen Urine Leukocytes Urine RBC Urine WBC Ur Squamous Epith Cells Urine Mucus Ur Culture Indicated? Blood Type Antibody Screen Crossmatch 12/17/16 12/17/16 12/17/16 14:20 15:49 16:49 WBC RBC Hgb Hct MCV MCH MCHC RDW Plt Count MPV Neut % (Auto) Lymph % (Auto) [place] % (Auto) Eos % (Auto) Baso % (Auto) Neut # (Auto) Lymph # (Auto) [place] # (Auto) Eos # (Auto) Baso # (Auto) Immature Gran % Nucleated RBC % Immature Gran # Nucleated RBCs # Platelet Estimate Anisocytosis INR PT Patient/Control Mix Circ Anticoag PTT Patient Temperature ABG pH 7.482 H 7.475 H 7.438 ABG pH at Pt Temp ABG pCO2 27.7 L 28.4 L 32.4 L ABG pCO2 at Pt Temp ABG pO2 164.0 H 142.0 H 142.0 H ABG pO2 at Pt Temp ABG HCO3 22.9 22.9 23.0 ABG Total CO2 18.8 L 19.0 L 20.0 L ABG O2 Saturation 99.6 99.4 99.3 ABG Base Excess -1.9 -1.8 -1.6 ABG Sodium VBG pH VBG pCO2 VBG pO2 VBG HCO3 VBG Total CO2 VBG O2 Saturation VBG Base Excess Hemoglobin 9.6 L 9.6 L 9.5 L Hematocrit 29.8 L 29.8 L 29.3 L Potassium 4.1 4.2 4.0 Glucose 208 H 139 H 112 H Ionized Calcium FiO2 Sodium Chloride Carbon Dioxide Anion Gap BUN Creatinine GFR Calculation BUN/Creatinine Ratio Calculated Osmolality Calcium Venous Ioniz Calcium Magnesium Total Bilirubin Direct Bilirubin AST ALT Alkaline Phosphatase Total Creatine Kinase CK-MB (CK-2) CK and CKMB Interp Troponin I Total Protein Albumin Globulin Albumin/Globulin Ratio Urine Color Urine Appearance Urine pH Ur Specific [place] Urine Protein Urine Glucose (UA) Urine Ketones Urine Blood Urine Nitrate Urine Bilirubin Urine Urobilinogen Urine Leukocytes Urine RBC Urine WBC Ur Squamous Epith Cells Urine Mucus Ur Culture Indicated? Blood Type Antibody Screen Crossmatch 12/17/16 12/17/16 12/18/16 19:09 21:08 00:15 WBC RBC Hgb Hct MCV MCH MCHC RDW Plt Count MPV Neut % (Auto) Lymph % (Auto) [place] % (Auto) Eos % (Auto) Baso % (Auto) Neut # (Auto) Lymph # (Auto) [place] # (Auto) Eos # (Auto) Baso # (Auto) Immature Gran % Nucleated RBC % Immature Gran # Nucleated RBCs # Platelet Estimate Anisocytosis INR PT Patient/Control Mix Circ Anticoag PTT Patient Temperature ABG pH 7.475 H 7.511 H ABG pH at Pt Temp ABG pCO2 28.4 L 28.6 L ABG pCO2 at Pt Temp ABG pO2 140.0 H 126.1 H ABG pO2 at Pt Temp ABG HCO3 23.0 22.4 ABG Total CO2 18.9 L 23.2 ABG O2 Saturation 98.9 98.3 ABG Base Excess -1.7 0.1 ABG Sodium VBG pH VBG pCO2 VBG pO2 VBG HCO3 VBG Total CO2 VBG O2 Saturation VBG Base Excess Hemoglobin 10.1 L 10.8 L D Hematocrit 31.3 L 32.0 L Potassium 4.5 4.2 Glucose 173 H 129 H Ionized Calcium FiO2 Sodium Chloride Carbon Dioxide Anion Gap BUN Creatinine GFR Calculation BUN/Creatinine Ratio Calculated Osmolality Calcium Venous Ioniz Calcium Magnesium Total Bilirubin Direct Bilirubin AST ALT Alkaline Phosphatase Total Creatine Kinase 286 CK-MB (CK-2) 12.2 H CK and CKMB Interp 4.3 Troponin I 4.860 H Total Protein Albumin Globulin Albumin/Globulin Ratio Urine Color Urine Appearance Urine pH Ur Specific [place] Urine Protein Urine Glucose (UA) Urine Ketones Urine Blood Urine Nitrate Urine Bilirubin Urine Urobilinogen Urine Leukocytes Urine RBC Urine WBC Ur Squamous Epith Cells Urine Mucus Ur Culture Indicated? Blood Type Antibody Screen Crossmatch 12/18/16 12/18/16 12/18/16 02:20 03:00 03:00 WBC 12.5 H RBC 3.71 L Hgb 10.4 L Hct 32.4 L MCV 87.3 MCH 28 MCHC 32.1 RDW 14.1 Plt Count 206 MPV 9.9 Neut % (Auto) 83.9 H Lymph % (Auto) 10.9 L [place] % (Auto) 4.9 Eos % (Auto) 0.0 Baso % (Auto) 0.1 Neut # (Auto) 10.5 H Lymph # (Auto) 1.4 [place] # (Auto) 0.6 Eos # (Auto) 0.0 Baso # (Auto) 0.0 Immature Gran % 0.2 Nucleated RBC % 0.0 Immature Gran # 0.03 Nucleated RBCs # 0.00 Platelet Estimate Normal Anisocytosis INR PT Patient/Control Mix Circ Anticoag PTT Patient Temperature ABG pH 7.445 ABG pH at Pt Temp ABG pCO2 33.7 L ABG pCO2 at Pt Temp ABG pO2 148.0 H ABG pO2 at Pt Temp ABG HCO3 22.6 ABG Total CO2 23.7 ABG O2 Saturation 98.5 ABG Base Excess -0.9 ABG Sodium VBG pH VBG pCO2 VBG pO2 VBG HCO3 VBG Total CO2 VBG O2 Saturation VBG Base Excess Hemoglobin 11.2 L Hematocrit 33.0 L Potassium 4.6 Glucose 166 H Ionized Calcium FiO2 Sodium Chloride Carbon Dioxide Anion Gap BUN Creatinine GFR Calculation BUN/Creatinine Ratio Calculated Osmolality Calcium Venous Ioniz Calcium Magnesium Total Bilirubin Direct Bilirubin AST ALT Alkaline Phosphatase Total Creatine Kinase 264 CK-MB (CK-2) 10.5 H CK and CKMB Interp 4.0 Troponin I 4.320 H Total Protein Albumin Globulin Albumin/Globulin Ratio Urine Color Urine Appearance Urine pH Ur Specific [place] Urine Protein Urine Glucose (UA) Urine Ketones Urine Blood Urine Nitrate Urine Bilirubin Urine Urobilinogen Urine Leukocytes Urine RBC Urine WBC Ur Squamous Epith Cells Urine Mucus Ur Culture Indicated? Blood Type Antibody Screen Crossmatch 12/18/16 12/18/16 12/18/16 03:00 03:00 05:00 WBC RBC Hgb Hct MCV MCH MCHC RDW Plt Count MPV Neut % (Auto) Lymph % (Auto) [place] % (Auto) Eos % (Auto) Baso % (Auto) Neut # (Auto) Lymph # (Auto) [place] # (Auto) Eos # (Auto) Baso # (Auto) Immature Gran % Nucleated RBC % Immature Gran # Nucleated RBCs # Platelet Estimate Anisocytosis INR PT Patient/Control Mix Circ Anticoag PTT Patient Temperature ABG pH 7.420 7.366 ABG pH at Pt Temp ABG pCO2 34.7 L 38.7 ABG pCO2 at Pt Temp ABG pO2 128.6 H 135.0 H ABG pO2 at Pt Temp ABG HCO3 22.0 22.0 ABG Total CO2 23.1 20.1 L ABG O2 Saturation 98.2 98.6 ABG Base Excess -2.0 -2.9 L ABG Sodium VBG pH VBG pCO2 VBG pO2 VBG HCO3 VBG Total CO2 VBG O2 Saturation VBG Base Excess Hemoglobin 11.3 L 10.5 L Hematocrit 33.0 L 32.4 L Potassium 4.5 4.4 4.2 Glucose 187 H 178 H 200 H Ionized Calcium FiO2 Sodium 141 Chloride 107 Carbon Dioxide 23 Anion Gap 15.5 H BUN 17 Creatinine 1.40 H GFR Calculation 75 BUN/Creatinine Ratio 12.00 Calculated Osmolality 287.3 Calcium 8.1 L Venous Ioniz Calcium Magnesium 1.6 L Total Bilirubin 1.30 H Direct Bilirubin 0.40 H AST 42 H ALT 40 Alkaline Phosphatase 62 Total Creatine Kinase CK-MB (CK-2) CK and CKMB Interp Troponin I Total Protein 5.9 L Albumin 3.1 L Globulin 2.8 Albumin/Globulin Ratio 1.1 Urine Color Urine Appearance Urine pH Ur Specific [place] Urine Protein Urine Glucose (UA) Urine Ketones Urine Blood Urine Nitrate Urine Bilirubin Urine Urobilinogen Urine Leukocytes Urine RBC Urine WBC Ur Squamous Epith Cells Urine Mucus Ur Culture Indicated? Blood Type Antibody Screen Crossmatch Quality Measures - VTE Contraindication to Pharmacological VTE Prophylaxis: High Risk of Bleeding
--- NOTE | 2016-12-18 06:58 | Event Note ---
Oberon-Tk catheter placed via the right subclavian vein on 12/17/2016.
[2016-12-18] MEDS: CEFUROXIME INJ 1,500 MG in SODIUM CHLORIDE 0.9% 100 ML IV SCH ×2 (07:48→20:54)
--- NOTE | 2016-12-18 07:51 | EKG Report ---
Stationary ECG Study [facility] Test Date: 12/18/2016 7:50:11 AM Pat Name: DOMINGA AGARWAL Department: Room: 104 Gender: M Print Line Supervisor: ACOSTA : [id number] Requested by: Isiah Sanchez Order Number: [id number] Reading MD: CORRINE SON Intervals [place] Rate: 89 P: 42 [place]: 192 QRS: -40 QRSD: 110 T: -9 QT: 376 QTc: 422 Interpretive Statements SINUS RHYTHM MODERATE VOLTAGE CRITERIA FOR LVH, CONSIDER NORMAL VARIANT INFERIOR MYOCARDIAL INFARCTION, OF INDETERMINATE AGE WITH POSTERIOR EXTENSION, AGE UNKNOWN Electronically Signed On 12-22-16 11:47:45 CDT by CORRINE SON [email or web address]
--- NOTE | 2016-12-18 08:22 | Hospitalist Progress Note ---
Assessment and Plan (1) Diabetes Status: Acute Assessment and plan: The patient is admitted to the hospital for bypass grafting. Blood glucose control is improved on insulin infusion. The plan is to continue infusion until the patient's extubated. 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 The patient had an episode of delirium earlier this morning but is now improved. The patient remains on the ventilator. Blood glucose is being controlled with insulin infusion and result is reasonable glucose control. Exam - Constitutional Vitals: Period Temp Pulse Resp BP Sys/Meza Pulse Ox Last 24 Hr 96.8 F-98.8 F 76-91 6-16 106-159/48-90 97-99 Exam: Constitutional System: Mild distress. No tremulousness. The patient is orally intubated and mechanically ventilated Head: Normocephalic, atraumatic. Ears, Nose and Throat System: No evidence of Otitis or Mastoiditis. No epistaxis or discharge Eyes System: Pupils equal, round, and reactive. Extraocular muscles intact. Neck: Supple, Respiratory System: Chest clear to auscultation. Recent thoracotomy Cardiovascular System: Heart with regular rate and rhythm. No murmur. GI System: Abdomen soft, nontender. Normo active bowel sounds present. Musculoskeletal System: limbs with no pedal edema. Full distal pulses. Neurological System: No discernable sensory deficit. Results - Labs CBC & BMP: 12/18/16 03:00 12/18/16 03:00 Lab Results: I have reviewed the past 24 hour labs Quality Measures - VTE Contraindication to Pharmacological VTE Prophylaxis: High Risk of Bleeding
--- NOTE | 2016-12-18 08:27 | XRay Report ---
History: Air leak in chest tube Date: 12/18/2016 Study: Chest x-ray AP portable Comparison exam: 12/17/2016 The endotracheal tube, nasogastric tube, right IJ central line, and chest drainage tubes remain in stable position. The right subclavian Oatman-Tk catheter is positioned with its tip in the distal descending left pulmonary artery. There is no pneumothorax. The cardiomediastinal silhouette is unchanged. There is mild atelectatic change in the lung bases, left more than right. The left basilar atelectasis is slightly increased. There is no increasing pleural effusion. The exam is otherwise unchanged. Impression: Supporting tubes are generally unchanged No pneumothorax Increased left lower lobe atelectasis compared to the previous study PROCEDURE INTERPRETED AT [facility] DEPARTMENT OF RADIOLOGY Final Report Signed by: Dr. Halie Clark
[2016-12-18 09:02] LABS: ABG Base Excess -0.7 MMOL/L (-2.5-2.5); ABG HCO3 24.1 MMOL/L (20-26); ABG Oxygen Saturation 98.1 % (95-100); ABG PCO2 40.2 MM HG (35-48); ABG PH 7.396 (7.35-7.45); ABG PO2 127.5 MM HG (80-95); ABG TCO2 25.4 MMOL/L (23-27); Glucose Heart Surgery 117 MG/DL (74-106); Hemoglobin Heart Surgery 11.2 G/DL (14.0-18.0); Potassium Heart/CVR 4.6 MMOL/L (3.5-5.1)
[2016-12-18] MEDS: CHLORHEXIDINE 0.12% ORAL RINSE 60 ML BOTTLE SWISH/SPIT SCH ×2 (09:22→20:55)
[2016-12-18 10:04] LABS: ABG Base Excess -1.4 MMOL/L (-2.5-2.5); ABG HCO3 23.2 MMOL/L (20-26); ABG Oxygen Saturation 98.7 % (95-100); ABG PCO2 42.2 MM HG (35-48); ABG PH 7.362 (7.35-7.45); ABG TCO2 21.7 MMOL/L (23-27); Glucose Heart Surgery 114 MG/DL (74-106); Hemoglobin Heart Surgery 10.4 G/DL (14.0-18.0); Potassium Heart/CVR 4.5 MMOL/L (3.5-5.1)
[2016-12-18] MEDS ORDERED: THROMBIN TOPICAL (RECOMBINANT) 5,000 UNIT VIAL TOP ONE (11:43)
[2016-12-18] MEDS: amLODIPine 2.5 MG TABLET PO SCH (13:21)
[2016-12-18] MEDS ORDERED: PROMETHAZINE INJ 12.5 MG in SODIUM CHLORIDE 0.9% 50 ML IV ONE (13:41)
[2016-12-18] MEDS ORDERED: METOCLOPRAMIDE 10 MG/2 ML VIAL IV PRN (13:41)
--- NOTE | 2016-12-18 13:42 | XRay Report ---
Portable chest Date: 12/18/2016 Clinical history: Postchest tube removal Comparison: 12/18/2016 Technique: Portable AP sitting chest Findings: The heart remains enlarged with recent median sternotomy. Interval removal of the endotracheal tube, nasogastric tube, mediastinal chest tubes, and Lipscomb-Tk catheter. Stable right IJ CVP line. No evidence of pneumothorax. Residual edema/ atelectasis especially in the left mid to lower lung zone with small left pleural effusion. Degenerative changes are noted. Impression: Recent median sternotomy with no pneumothorax identified following removal of the endotracheal tube, nasogastric tube, mediastinal chest tubes, and Lipscomb-Tk catheter. Reduced but persistent edema/atelectasis especially at the left lung base with small left pleural effusion. PROCEDURE INTERPRETED AT [facility] DEPARTMENT OF RADIOLOGY Final Report Signed by: Dr. Shanta Hicks
[2016-12-18 15:07] LABS: CKMB % 3.2 %
[2016-12-18 15:32] LABS: Troponin I Only 2.1 NG/ML (0.00-0.045)
[2016-12-18] MEDS: NITROPRUSSIDE 100 MG in DEXTROSE 5% 250 ML IV PRN (15:50)
[2016-12-18] MEDS: INSULIN REGULAR 100 UNIT/ML SUBCUT SCH ×2 (17:39→20:54)
[2016-12-19] MEDS: NITROGLYCERIN DRIP 50 MG/250 ML BOTTLE IV SCH (00:09)
[2016-12-19 04:46] LABS: ABG Base Excess -0.7 MMOL/L (-2.5-2.5); ABG HCO3 23.8 MMOL/L (20-26); ABG Oxygen Saturation 97.5 % (95-100); ABG PCO2 44.2 MM HG (35-48); ABG PH 7.358 (7.35-7.45); ABG TCO2 22.7 MMOL/L (23-27)
[2016-12-19 04:50] LABS: Basophils % 0.1 % (0.0-0.8); Hematocrit 33.1 VOL% (42.0-52.0); Hemoglobin 10.6 GM/DL (14.0-18.0); Immature Granulocytes % 0.7 %; Immature Granulocytes Absolute 0.05 #; Lymphocytes % 14.8 % (21.2-54.2); Mean Corpuscular Hemoglobin 28 PG (27-34); Mean Corpuscular Volume 86.4 FL (87-102); Monocytes # 1.2 10*3/uL (0.11-0.8); Monocytes % 16.9 % (1.7-12.7); Neutrophils # 4.7 10*3/uL (1.4-7.4); Neutrophils % 67.5 % (38.7-73.9); Platelet Count 221 T/CUMM (130-400); Red Blood Count 3.83 MC/CUMM (3.8-5.5); Red Cell Distribution Width 14.6 % (9.3-17.3); White Blood Count 6.9 T/CUMM (4-12)
[2016-12-19] MEDS: MORPHINE 2 MG/1 ML SYRINGE IV PRN (05:10)
[2016-12-19 05:20] LABS: Albumin 2.9 G/DL (3.4-5.0); Bilirubin,Direct 0.1 MG/DL (0.0-0.20); Bilirubin,Total 0.6 MG/DL (0.2-1.0); Calcium 8.3 MG/DL (8.5-10.1); Magnesium 2.4 MG/DL (1.8-2.4); Osmolality,Calculated 281.5 MOS/KG (273-304); Potassium 4.9 MMOL/L (3.5-5.1); Total Protein 5.7 G/DL (6.4-8.3)
[2016-12-19 05:41] LABS: Band Neutrophils 9 % (0-10); Burr Cells Slight; Hypochromasia Slight; Lymphocytes 11 % (20-55); Platelet Estimate Adequate; Segmented Neutrophils 64 % (50-85); Total Cells Counted 100
--- NOTE | 2016-12-19 06:11 | Cardiothoracic Progress Note ---
Cardiothoracic Subjective Interval history: Patient is awake alert and extubated. He had a comfortable night and his vital signs are stable this morning and is breathing comfortably. Laboratory work is essentially within normal limits for postoperative day 2. I think he can be transferred to telemetry and we will try to arrange that for later this morning. We will gradually increase his activity as tolerated. Exam (Progress Note) - Constitutional Vitals: Period Temp Pulse Resp BP Sys/Meza Pulse Ox Last 24 Hr 97.0 F-98.9 F 81-104 6-24 110-178/48-78 95-98 Result/EKG - Labs CBC & BMP: 12/19/16 04:30 12/19/16 04:30 Labs: Laboratory Results - last 24 hr 12/16/16 12/17/16 12/17/16 09:16 13:29 14:15 WBC RBC Hgb Hct MCV MCH MCHC RDW Plt Count MPV Neut % (Auto) Lymph % (Auto) [place] % (Auto) Eos % (Auto) Baso % (Auto) Neut # (Auto) Lymph # (Auto) [place] # (Auto) Eos # (Auto) Baso # (Auto) Total Counted Immature Gran % Nucleated RBC % Immature Gran # Segmented Neutrophils Band Neutrophils Lymphocytes Monocytes Nucleated RBCs # Platelet Estimate Hypochromasia [place] Cells Morphology Comment ABG pH ABG pCO2 ABG pO2 ABG HCO3 ABG Total CO2 ABG O2 Saturation ABG Base Excess Hemoglobin Hematocrit Potassium Glucose Sodium Chloride Carbon Dioxide Anion Gap BUN Creatinine GFR Calculation BUN/Creatinine Ratio POC Glucose 210 H 213 H Calculated Osmolality Calcium Magnesium Total Bilirubin Direct Bilirubin AST ALT Alkaline Phosphatase Total Creatine Kinase CK-MB (CK-2) CK and CKMB Interp Troponin I Total Protein Albumin Globulin Albumin/Globulin Ratio Blood Type A POSITIVE Antibody Screen Negative Crossmatch See Detail 12/17/16 12/17/16 12/17/16 15:20 18:12 18:38 WBC RBC Hgb Hct MCV MCH MCHC RDW Plt Count MPV Neut % (Auto) Lymph % (Auto) [place] % (Auto) Eos % (Auto) Baso % (Auto) Neut # (Auto) Lymph # (Auto) [place] # (Auto) Eos # (Auto) Baso # (Auto) Total Counted Immature Gran % Nucleated RBC % Immature Gran # Segmented Neutrophils Band Neutrophils Lymphocytes Monocytes Nucleated RBCs # Platelet Estimate Hypochromasia [place] Cells Morphology Comment ABG pH ABG pCO2 ABG pO2 ABG HCO3 ABG Total CO2 ABG O2 Saturation ABG Base Excess Hemoglobin Hematocrit Potassium Glucose Sodium Chloride Carbon Dioxide Anion Gap BUN Creatinine GFR Calculation BUN/Creatinine Ratio POC Glucose 141 H 67 L 172 H Calculated Osmolality Calcium Magnesium Total Bilirubin Direct Bilirubin AST ALT Alkaline Phosphatase Total Creatine Kinase CK-MB (CK-2) CK and CKMB Interp Troponin I Total Protein Albumin Globulin Albumin/Globulin Ratio Blood Type Antibody Screen Crossmatch 12/17/16 12/17/16 12/17/16 19:09 20:39 21:33 WBC RBC Hgb Hct MCV MCH MCHC RDW Plt Count MPV Neut % (Auto) Lymph % (Auto) [place] % (Auto) Eos % (Auto) Baso % (Auto) Neut # (Auto) Lymph # (Auto) [place] # (Auto) Eos # (Auto) Baso # (Auto) Total Counted Immature Gran % Nucleated RBC % Immature Gran # Segmented Neutrophils Band Neutrophils Lymphocytes Monocytes Nucleated RBCs # Platelet Estimate Hypochromasia [place] Cells Morphology Comment ABG pH ABG pCO2 ABG pO2 ABG HCO3 ABG Total CO2 ABG O2 Saturation ABG Base Excess Hemoglobin Hematocrit Potassium Glucose Sodium Chloride Carbon Dioxide Anion Gap BUN Creatinine GFR Calculation BUN/Creatinine Ratio POC Glucose 149 H 118 H 118 H Calculated Osmolality Calcium Magnesium Total Bilirubin Direct Bilirubin AST ALT Alkaline Phosphatase Total Creatine Kinase CK-MB (CK-2) CK and CKMB Interp Troponin I Total Protein Albumin Globulin Albumin/Globulin Ratio Blood Type Antibody Screen Crossmatch 12/17/16 12/18/16 12/18/16 22:42 00:12 04:12 WBC RBC Hgb Hct MCV MCH MCHC RDW Plt Count MPV Neut % (Auto) Lymph % (Auto) [place] % (Auto) Eos % (Auto) Baso % (Auto) Neut # (Auto) Lymph # (Auto) [place] # (Auto) Eos # (Auto) Baso # (Auto) Total Counted Immature Gran % Nucleated RBC % Immature Gran # Segmented Neutrophils Band Neutrophils Lymphocytes Monocytes Nucleated RBCs # Platelet Estimate Hypochromasia [place] Cells Morphology Comment ABG pH ABG pCO2 ABG pO2 ABG HCO3 ABG Total CO2 ABG O2 Saturation ABG Base Excess Hemoglobin Hematocrit Potassium Glucose Sodium Chloride Carbon Dioxide Anion Gap BUN Creatinine GFR Calculation BUN/Creatinine Ratio POC Glucose 95 125 H 185 H Calculated Osmolality Calcium Magnesium Total Bilirubin Direct Bilirubin AST ALT Alkaline Phosphatase Total Creatine Kinase CK-MB (CK-2) CK and CKMB Interp Troponin I Total Protein Albumin Globulin Albumin/Globulin Ratio Blood Type Antibody Screen Crossmatch 12/18/16 12/18/16 12/18/16 06:11 07:13 08:50 WBC RBC Hgb Hct MCV MCH MCHC RDW Plt Count MPV Neut % (Auto) Lymph % (Auto) [place] % (Auto) Eos % (Auto) Baso % (Auto) Neut # (Auto) Lymph # (Auto) [place] # (Auto) Eos # (Auto) Baso # (Auto) Total Counted Immature Gran % Nucleated RBC % Immature Gran # Segmented Neutrophils Band Neutrophils Lymphocytes Monocytes Nucleated RBCs # Platelet Estimate Hypochromasia [place] Cells Morphology Comment ABG pH 7.396 ABG pCO2 40.2 ABG pO2 127.5 H ABG HCO3 24.1 ABG Total CO2 25.4 ABG O2 Saturation 98.1 ABG Base Excess -0.7 Hemoglobin 11.2 L Hematocrit 33.0 L Potassium 4.6 Glucose 117 H Sodium Chloride Carbon Dioxide Anion Gap BUN Creatinine GFR Calculation BUN/Creatinine Ratio POC Glucose 182 H 136 H Calculated Osmolality Calcium Magnesium Total Bilirubin Direct Bilirubin AST ALT Alkaline Phosphatase Total Creatine Kinase CK-MB (CK-2) CK and CKMB Interp Troponin I Total Protein Albumin Globulin Albumin/Globulin Ratio Blood Type Antibody Screen Crossmatch 12/18/16 12/18/16 12/18/16 09:52 14:29 16:57 WBC RBC Hgb Hct MCV MCH MCHC RDW Plt Count MPV Neut % (Auto) Lymph % (Auto) [place] % (Auto) Eos % (Auto) Baso % (Auto) Neut # (Auto) Lymph # (Auto) [place] # (Auto) Eos # (Auto) Baso # (Auto) Total Counted Immature Gran % Nucleated RBC % Immature Gran # Segmented Neutrophils Band Neutrophils Lymphocytes Monocytes Nucleated RBCs # Platelet Estimate Hypochromasia [place] Cells Morphology Comment ABG pH 7.362 ABG pCO2 42.2 ABG pO2 126.0 H ABG HCO3 23.2 ABG Total CO2 21.7 L ABG O2 Saturation 98.7 ABG Base Excess -1.4 Hemoglobin 10.4 L Hematocrit 32.0 L Potassium 4.5 Glucose 114 H Sodium Chloride Carbon Dioxide Anion Gap BUN Creatinine GFR Calculation BUN/Creatinine Ratio POC Glucose 208 H Calculated Osmolality Calcium Magnesium Total Bilirubin Direct Bilirubin AST ALT Alkaline Phosphatase Total Creatine Kinase 238 CK-MB (CK-2) 7.5 H CK and CKMB Interp 3.2 Troponin I 2.100 H D Total Protein Albumin Globulin Albumin/Globulin Ratio Blood Type Antibody Screen Crossmatch 12/18/16 12/19/16 12/19/16 20:46 04:30 04:30 WBC 6.9 D RBC 3.83 Hgb 10.6 L Hct 33.1 L MCV 86.4 L MCH 28 MCHC 32.0 RDW 14.6 Plt Count 221 MPV 10.0 Neut % (Auto) 67.5 Lymph % (Auto) 14.8 L [place] % (Auto) 16.9 H Eos % (Auto) 0.0 Baso % (Auto) 0.1 Neut # (Auto) 4.7 Lymph # (Auto) 1.0 L [place] # (Auto) 1.2 H Eos # (Auto) 0.0 Baso # (Auto) 0.0 Total Counted 100 Immature Gran % 0.7 Nucleated RBC % 0.0 Immature Gran # 0.05 Segmented Neutrophils 64 Band Neutrophils 9 Lymphocytes 11 L Monocytes 16 H Nucleated RBCs # 0.00 Platelet Estimate Adequate Hypochromasia Slight [place] Cells Slight Morphology Comment ABG pH ABG pCO2 ABG pO2 ABG HCO3 ABG Total CO2 ABG O2 Saturation ABG Base Excess Hemoglobin Hematocrit Potassium 4.9 Glucose 135 H Sodium 139 Chloride 107 Carbon Dioxide 25 Anion Gap 11.9 BUN 22 H Creatinine 1.00 GFR Calculation 113 BUN/Creatinine Ratio 22.00 H POC Glucose 188 H Calculated Osmolality 281.5 Calcium 8.3 L Magnesium 2.4 Total Bilirubin 0.60 Direct Bilirubin 0.10 AST 25 ALT 36 Alkaline Phosphatase 61 Total Creatine Kinase CK-MB (CK-2) CK and CKMB Interp Troponin I Total Protein 5.7 L Albumin 2.9 L Globulin 2.8 Albumin/Globulin Ratio 1.0 L Blood Type Antibody Screen Crossmatch 12/19/16 04:30 WBC RBC Hgb Hct MCV MCH MCHC RDW Plt Count MPV Neut % (Auto) Lymph % (Auto) [place] % (Auto) Eos % (Auto) Baso % (Auto) Neut # (Auto) Lymph # (Auto) [place] # (Auto) Eos # (Auto) Baso # (Auto) Total Counted Immature Gran % Nucleated RBC % Immature Gran # Segmented Neutrophils Band Neutrophils Lymphocytes Monocytes Nucleated RBCs # Platelet Estimate Hypochromasia [place] Cells Morphology Comment ABG pH 7.358 ABG pCO2 44.2 ABG pO2 101.0 H ABG HCO3 23.8 ABG Total CO2 22.7 L ABG O2 Saturation 97.5 ABG Base Excess -0.7 Hemoglobin Hematocrit Potassium Glucose Sodium Chloride Carbon Dioxide Anion Gap BUN Creatinine GFR Calculation BUN/Creatinine Ratio POC Glucose Calculated Osmolality Calcium Magnesium Total Bilirubin Direct Bilirubin AST ALT Alkaline Phosphatase Total Creatine Kinase CK-MB (CK-2) CK and CKMB Interp Troponin I Total Protein Albumin Globulin Albumin/Globulin Ratio Blood Type Antibody Screen Crossmatch Quality Measures - VTE Contraindication to Pharmacological VTE Prophylaxis: High Risk of Bleeding
[2016-12-19] MEDS ORDERED: MAGNESIUM SULF RIDER 2 GM in PREMIX 1 EACH IV PRN (06:14)
[2016-12-19] MEDS ORDERED: ACETAMINOPHEN 325 MG TABLET PO PRN (06:14)
[2016-12-19] MEDS ORDERED: DEXTROSE 50% 25 GM/50 ML VIAL IV PRN ×2 (06:14)
[2016-12-19] MEDS ORDERED: POTASSIUM CHLORIDE 20 MEQ TABLET PO PRN (06:14)
[2016-12-19] MEDS ORDERED: ALUMINUM/MAGNES/SIMETH MAX STR 30 ML UDCUP PO PRN (06:14)
[2016-12-19] MEDS ORDERED: KETOROLAC 30 MG/1 ML VIAL IV PRN (06:14)
[2016-12-19] MEDS ORDERED: ONDANSETRON 4 MG/2 ML VIAL IV PRN (06:14)
[2016-12-19] MEDS ORDERED: GLUCAGON 1 MG VIAL IM PRN ×2 (06:14)
[2016-12-19] MEDS ORDERED: MAGNESIUM SULF RIDER 4 GM in PREMIX 1 EACH IV PRN (06:14)
[2016-12-19] MEDS ORDERED: ZALEPLON 5 MG CAPSULE PO PRN (06:14)
[2016-12-19] MEDS ORDERED: oxyCODONE/ACETAMINOPHEN 5-325 MG TABLET PO PRN (06:14)
[2016-12-19] MEDS: SODIUM CHLOR 0.45% KCL 20 MEQ 20 MEQ/1,000 ML BAG IV SCH (06:59)
[2016-12-19] MEDS: SODIUM CHLORIDE 0.45% 1,000 ML IV SCH (06:59)
--- NOTE | 2016-12-19 07:44 | XRay Report ---
XR chest 1V portable Indication: Chest tube removal, pneumothorax Comparison: 18 December 2016 Findings: The heart and mediastinum are stable in size and configuration with cardiac surgery changes. Right internal jugular catheter is present, unchanged in position. The pulmonary vascularity is increased with bilateral increased interstitial lung density. No other lung infiltrates, effusions, pneumothorax or other abnormality is demonstrated. Impression: Findings suggest slightly increased cardiac decompensation. PROCEDURE INTERPRETED AT [facility] DEPARTMENT OF RADIOLOGY Final Report Signed by: Dr. Jaden Rodrigues
--- NOTE | 2016-12-19 08:04 | Hospitalist Progress Note ---
Assessment and Plan (1) Diabetes Status: Acute Assessment and plan: The patient is admitted to the hospital for bypass grafting. Blood glucose control is improved on insulin infusion. The patient is now ready for transfer to the floor. He will restart glimepiride and we will use sliding scale insulin before each meal and at bedtime to maintain good glucose control. I do not see any evidence of pneumonia at this time. Current Visit: Yes Qualifiers: Diabetes mellitus type: type 2 Diabetes mellitus complication status: with hyperglycemia Diabetes mellitus half-way insulin use: without terminal operations supervisor use Qualified Code(s): E11.65 - Type 2 diabetes mellitus with hyperglycemia (2) Status post coronary artery bypass graft Status: Acute Current Visit: Yes Hospitalist: Subjective Interval history: The patient is awake alert and extubated this morning. He does not complain of cough or sputum production. The patient is afebrile. Blood glucose is well controlled. Exam - Constitutional Vitals: Period Temp Pulse Resp BP Sys/Meza Pulse Ox Last 24 Hr 97.0 F-98.9 F 81-104 12-24 110-178/48-78 95-98 Exam: Constitutional System: Mild distress. No tremulousness. Head: Normocephalic, atraumatic. Ears, Nose and Throat System: No evidence of Otitis or Mastoiditis. No epistaxis or discharge Eyes System: Pupils equal, round, and reactive. Extraocular muscles intact. Neck: Supple, Respiratory System: Chest clear to auscultation. Recent thoracotomy Cardiovascular System: Heart with regular rate and rhythm. No murmur. GI System: Abdomen soft, nontender. Normo active bowel sounds present. Musculoskeletal System: limbs with no pedal edema. Full distal pulses. Neurological System: No discernable sensory deficit. Results - Labs CBC & BMP: 12/19/16 04:30 12/19/16 04:30 Lab Results: I have reviewed the past 24 hour labs Quality Measures - VTE Contraindication to Pharmacological VTE Prophylaxis: High Risk of Bleeding Specialty Discharge - Follow Up or Referrals
[2016-12-19] MEDS: amLODIPine 2.5 MG TABLET PO SCH ×2 (09:43→17:13)
[2016-12-19] MEDS: PANTOPRAZOLE 40 MG TABLET PO SCH (09:43)
[2016-12-19] MEDS: DOCUSATE SODIUM 100 MG CAPSULE PO SCH (09:43)
[2016-12-19] MEDS: ASPIRIN EC 325 MG TABLET PO SCH (09:43)
[2016-12-19] MEDS: INSULIN REGULAR 100 UNIT/ML SUBCUT SCH ×4 (11:04→20:56)
[2016-12-19] MEDS: FERROUS SULFATE 325 MG TABLET PO SCH (11:05)
[2016-12-19] MEDS: CHLORHEXIDINE 0.12% ORAL RINSE 60 ML BOTTLE SWISH/SPIT SCH ×3 (11:16→20:56)
[2016-12-19] MEDS: GLIMEPIRIDE 4 MG TABLET PO SCH (17:16)
[2016-12-19] MEDS: ASPIRIN 325 MG TABLET PO SCH (17:16)
[2016-12-19] MEDS: ATORVASTATIN 40 MG TABLET PO SCH (20:54)
[2016-12-20 05:56] LABS: Basophils % 0.1 % (0.0-0.8); Eosinophils % 0.1 % (0.00-10.9); Hematocrit 34.7 VOL% (42.0-52.0); Hemoglobin 10.8 GM/DL (14.0-18.0); Immature Granulocytes % 0.4 %; Immature Granulocytes Absolute 0.03 #; Lymphocytes % 13.9 % (21.2-54.2); Mean Corpuscular HGB Conc 31.1 GM/DL (32-36); Mean Corpuscular Hemoglobin 28 PG (27-34); Mean Platelet Volume 9.8 FL (9.6-12.0); Monocytes % 13.5 % (1.7-12.7); Neutrophils # 5.1 10*3/uL (1.4-7.4); Platelet Count 229 T/CUMM (130-400); Red Cell Distribution Width 14.4 % (9.3-17.3); White Blood Count 7.1 T/CUMM (4-12)
[2016-12-20] MEDS ORDERED: FUROSEMIDE 40 MG/4 ML VIAL IV ONE (06:00)
[2016-12-20] MEDS: SODIUM CHLOR 0.45% KCL 20 MEQ 20 MEQ/1,000 ML BAG IV SCH (06:22)
[2016-12-20 06:30] LABS: Alanine Aminotransferase 31 U/L (16-61); Albumin 2.3 G/DL (3.4-5.0); Alkaline Phosphatase 68 U/L (45-117); Aspartate Amino Transferase 20 U/L (0-37); Bilirubin,Indirect 0.9 MG/DL (0.0-1.0); Blood Urea Nitrogen 26 MG/DL (7-18); Glucose 128 MG/DL (74-106); Magnesium 2.3 MG/DL (1.8-2.4); Osmolality,Calculated 281.7 MOS/KG (273-304); Potassium 4.6 MMOL/L (3.5-5.1); Sodium 138 MMOL/L (136-145); Total Protein 5.6 G/DL (6.4-8.3)
[2016-12-20 06:31] LABS: Troponin I Only 0.679 NG/ML (0.00-0.045)
[2016-12-20 06:54] LABS: Band Neutrophils 3 % (0-10); Lymphocytes 13 % (20-55); Platelet Estimate Normal; Segmented Neutrophils 69 % (50-85); Total Cells Counted 100
--- NOTE | 2016-12-20 08:56 | Cardiothoracic Progress Note ---
Cardiothoracic Subjective Interval history: Patient looks and feels okay. Vital signs have been stable and is breathing comfortably. He is ready to begin increasing his activity according to routine postoperative protocol. Overall his progress is satisfactory. Exam (Progress Note) - Constitutional Vitals: Period Temp Pulse Resp BP Sys/Meza Pulse Ox Last 24 Hr 97.4 F-99.0 F 81-85 18-22 113-160/68-89 96-99 Result/EKG - Labs CBC & BMP: 12/20/16 05:30 12/20/16 05:30 Labs: Laboratory Results - last 24 hr 12/18/16 12/18/16 12/18/16 08:01 11:11 12:40 WBC RBC Hgb Hct MCV MCH MCHC RDW Plt Count MPV Neut % (Auto) Lymph % (Auto) [place] % (Auto) Eos % (Auto) Baso % (Auto) Neut # (Auto) Lymph # (Auto) [place] # (Auto) Eos # (Auto) Baso # (Auto) Total Counted Immature Gran % Nucleated RBC % Immature Gran # Segmented Neutrophils Band Neutrophils Lymphocytes Monocytes Nucleated RBCs # Platelet Estimate Sodium Potassium Chloride Carbon Dioxide Anion Gap BUN Creatinine GFR Calculation BUN/Creatinine Ratio Glucose POC Glucose 113 H 81 126 H Calculated Osmolality Calcium Magnesium Total Bilirubin Direct Bilirubin Indirect Bilirubin AST ALT Alkaline Phosphatase Total Creatine Kinase CK-MB (CK-2) Troponin I Total Protein Albumin Globulin Albumin/Globulin Ratio 12/19/16 12/19/16 12/19/16 11:44 17:18 20:24 WBC RBC Hgb Hct MCV MCH MCHC RDW Plt Count MPV Neut % (Auto) Lymph % (Auto) [place] % (Auto) Eos % (Auto) Baso % (Auto) Neut # (Auto) Lymph # (Auto) [place] # (Auto) Eos # (Auto) Baso # (Auto) Total Counted Immature Gran % Nucleated RBC % Immature Gran # Segmented Neutrophils Band Neutrophils Lymphocytes Monocytes Nucleated RBCs # Platelet Estimate Sodium Potassium Chloride Carbon Dioxide Anion Gap BUN Creatinine GFR Calculation BUN/Creatinine Ratio Glucose POC Glucose 191 H 268 H 309 H Calculated Osmolality Calcium Magnesium Total Bilirubin Direct Bilirubin Indirect Bilirubin AST ALT Alkaline Phosphatase Total Creatine Kinase CK-MB (CK-2) Troponin I Total Protein Albumin Globulin Albumin/Globulin Ratio 12/20/16 12/20/16 12/20/16 05:30 05:30 07:35 WBC 7.1 RBC 3.90 Hgb 10.8 L Hct 34.7 L MCV 89.0 MCH 28 MCHC 31.1 L RDW 14.4 Plt Count 229 MPV 9.8 Neut % (Auto) 72.0 Lymph % (Auto) 13.9 L [place] % (Auto) 13.5 H Eos % (Auto) 0.1 Baso % (Auto) 0.1 Neut # (Auto) 5.1 Lymph # (Auto) 1.0 L [place] # (Auto) 1.0 H Eos # (Auto) 0.0 Baso # (Auto) 0.0 Total Counted 100 Immature Gran % 0.4 Nucleated RBC % 0.0 Immature Gran # 0.03 Segmented Neutrophils 69 Band Neutrophils 3 Lymphocytes 13 L Monocytes 15 Nucleated RBCs # 0.00 Platelet Estimate Normal Sodium 138 Potassium 4.6 Chloride 104 Carbon Dioxide 28 Anion Gap 10.6 BUN 26 H Creatinine 1.00 GFR Calculation 108 BUN/Creatinine Ratio 26.00 H Glucose 128 H POC Glucose 137 H Calculated Osmolality 281.7 Calcium 8.0 L Magnesium 2.3 Total Bilirubin 1.00 Direct Bilirubin 0.10 Indirect Bilirubin 0.9 AST 20 ALT 31 Alkaline Phosphatase 68 Total Creatine Kinase 105 D CK-MB (CK-2) 1.3 D Troponin I 0.679 H D Total Protein 5.6 L Albumin 2.3 L Globulin 3.3 Albumin/Globulin Ratio 0.6 L Quality Measures - VTE Contraindication to Pharmacological VTE Prophylaxis: High Risk of Bleeding Specialty Discharge - Follow Up or Referrals
[2016-12-20] MEDS: amLODIPine 2.5 MG TABLET PO SCH (10:43)
[2016-12-20] MEDS: DOCUSATE SODIUM 100 MG CAPSULE PO SCH (10:43)
[2016-12-20] MEDS: PANTOPRAZOLE 40 MG TABLET PO SCH (10:44)
[2016-12-20] MEDS: GLIMEPIRIDE 4 MG TABLET PO SCH (10:44)
[2016-12-20] MEDS: CHLORHEXIDINE 0.12% ORAL RINSE 60 ML BOTTLE SWISH/SPIT SCH ×2 (10:45→21:35)
[2016-12-20] MEDS: INSULIN REGULAR 100 UNIT/ML SUBCUT SCH ×4 (10:45→21:34)
[2016-12-20] MEDS: ASPIRIN 325 MG TABLET PO SCH (10:46)
[2016-12-20] MEDS: ASPIRIN EC 325 MG TABLET PO SCH (10:47)
[2016-12-20] MEDS: FERROUS SULFATE 325 MG TABLET PO SCH (12:03)
--- NOTE | 2016-12-20 12:15 | Hospitalist Progress Note ---
Assessment and Plan (1) Diabetes Status: Acute Assessment and plan: The patient is admitted to the hospital for bypass grafting. Blood glucose control is improved with oral antidiabetic medications. We will continue observation of glucometers and give sliding scale as required Current Visit: Yes Qualifiers: Diabetes mellitus type: type 2 Diabetes mellitus complication status: with hyperglycemia Diabetes mellitus exterminator helper insulin use: without exterminator helper use Qualified Code(s): E11.65 - Type 2 diabetes mellitus with hyperglycemia (2) Status post coronary artery bypass graft Status: Acute Current Visit: Yes Hospitalist: Subjective Interval history: Fasting glucose control is improving with oral antidiabetic medication. The patient did have hyperglycemia in the early portion of last night before the medications took effect. Exam - Constitutional Vitals: Period Temp Pulse Resp BP Sys/Meza Pulse Ox Last 24 Hr 97.4 F-99.0 F 81-89 16-20 113-160/71-89 97-99 Exam: Constitutional System: Mild distress. No tremulousness. Head: Normocephalic, atraumatic. Ears, Nose and Throat System: No evidence of Otitis or Mastoiditis. No epistaxis or discharge Eyes System: Pupils equal, round, and reactive. Extraocular muscles intact. Neck: Supple, Respiratory System: Chest clear to auscultation. Recent thoracotomy Cardiovascular System: Heart with regular rate and rhythm. No murmur. GI System: Abdomen soft, nontender. Normo active bowel sounds present. Musculoskeletal System: limbs with no pedal edema. Full distal pulses. Neurological System: No discernable sensory deficit. Results - Labs CBC & BMP: 12/20/16 05:30 12/20/16 05:30 Lab Results: I have reviewed the past 24 hour labs Quality Measures - VTE Contraindication to Pharmacological VTE Prophylaxis: High Risk of Bleeding Specialty Discharge - Follow Up or Referrals
--- NOTE | 2016-12-20 12:55 | XRay Report ---
History: Shortness of breath Date: 12/20/2016 Study: Chest x-ray AP portable Comparison exam: 12/19/2016 There is continued cardiomegaly. Mediastinal contours are unchanged in this patient status post prior median sternotomy. The pulmonary vasculature is borderline to minimally prominent. There is left greater than right bibasilar atelectasis, mildly improved. There is mild left pleural effusion. There is no pneumothorax. There is no new or worsening process. Osseous structures are similar. Impression: Persistent but improving bibasilar atelectasis. No adverse interval changes PROCEDURE INTERPRETED AT [facility] DEPARTMENT OF RADIOLOGY Final Report Signed by: Dr. Halie Clark
[2016-12-20] MEDS: ATORVASTATIN 40 MG TABLET PO SCH (21:34)
[2016-12-21 05:32] LABS: Basophils % 0.5 % (0.0-0.8); Eosinophils # 0.4 10*3/uL (0.0-0.87); Eosinophils % 5.4 % (0.00-10.9); Hematocrit 36.5 VOL% (42.0-52.0); Hemoglobin 11.4 GM/DL (14.0-18.0); Immature Granulocytes % 0.2 %; Immature Granulocytes Absolute 0.02 #; Lymphocytes # 1.9 10*3/uL (1.4-4.0); Lymphocytes % 23.1 % (21.2-54.2); Mean Corpuscular HGB Conc 31.2 GM/DL (32-36); Mean Corpuscular Hemoglobin 28 PG (27-34); Mean Corpuscular Volume 88.2 FL (87-102); Mean Platelet Volume 9.5 FL (9.6-12.0); Monocytes # 1.2 10*3/uL (0.11-0.8); Monocytes % 15.1 % (1.7-12.7); Neutrophils # 4.5 10*3/uL (1.4-7.4); Neutrophils % 55.7 % (38.7-73.9); Platelet Count 237 T/CUMM (130-400); Red Blood Count 4.14 MC/CUMM (3.8-5.5); Red Cell Distribution Width 14.1 % (9.3-17.3); White Blood Count 8.2 T/CUMM (4-12)
[2016-12-21 06:07] LABS: Alanine Aminotransferase 33 U/L (16-61); Albumin 2.6 G/DL (3.4-5.0); Alkaline Phosphatase 72 U/L (45-117); Aspartate Amino Transferase 19 U/L (0-37); Bilirubin,Indirect 0.7 MG/DL (0.0-1.0); Blood Urea Nitrogen 22 MG/DL (7-18); Glucose 112 MG/DL (74-106); Magnesium 2.1 MG/DL (1.8-2.4); Osmolality,Calculated 278.7 MOS/KG (273-304); Potassium 3.9 MMOL/L (3.5-5.1); Sodium 138 MMOL/L (136-145); Total Protein 5.6 G/DL (6.4-8.3)
[2016-12-21 06:09] LABS: Troponin I Only 0.485 NG/ML (0.00-0.045)
[2016-12-21 06:24] LABS: Hypochromasia 1+; Microcytosis 1+; Platelet Estimate Normal
--- NOTE | 2016-12-21 08:21 | Cardiothoracic Progress Note ---
Cardiothoracic Subjective Interval history: Patient looks and feels okay. Vital signs are stable and he is breathing comfortably. His lab work and his x-ray are essentially okay. He is gradually increasing his activity according to routine postoperative protocol. Overall his progress is satisfactory. Exam (Progress Note) - Constitutional Vitals: Period Temp Pulse Resp BP Sys/Meza Pulse Ox Last 24 Hr 98.4 F-99.2 F 83-94 16-18 99-137/69-82 91-99 Result/EKG - Labs CBC & BMP: 12/21/16 05:20 12/21/16 05:20 Labs: Laboratory Results - last 24 hr 12/20/16 12/20/16 12/20/16 07:35 11:33 15:30 WBC RBC Hgb Hct MCV MCH MCHC RDW Plt Count MPV Neut % (Auto) Lymph % (Auto) [place] % (Auto) Eos % (Auto) Baso % (Auto) Neut # (Auto) Lymph # (Auto) [place] # (Auto) Eos # (Auto) Baso # (Auto) Immature Gran % Nucleated RBC % Immature Gran # Nucleated RBCs # Platelet Estimate Hypochromasia Microcytosis Sodium Potassium Chloride Carbon Dioxide Anion Gap BUN Creatinine GFR Calculation BUN/Creatinine Ratio Glucose POC Glucose 137 H 173 H 214 H Calculated Osmolality Calcium Magnesium Total Bilirubin Direct Bilirubin Indirect Bilirubin AST ALT Alkaline Phosphatase Total Creatine Kinase CK-MB (CK-2) Troponin I Total Protein Albumin Globulin Albumin/Globulin Ratio 12/20/16 12/21/16 12/21/16 21:31 05:20 05:20 WBC 8.2 RBC 4.14 Hgb 11.4 L Hct 36.5 L MCV 88.2 MCH 28 MCHC 31.2 L RDW 14.1 Plt Count 237 MPV 9.5 L Neut % (Auto) 55.7 Lymph % (Auto) 23.1 [place] % (Auto) 15.1 H Eos % (Auto) 5.4 Baso % (Auto) 0.5 Neut # (Auto) 4.5 Lymph # (Auto) 1.9 [place] # (Auto) 1.2 H Eos # (Auto) 0.4 Baso # (Auto) 0.0 Immature Gran % 0.2 Nucleated RBC % 0.0 Immature Gran # 0.02 Nucleated RBCs # 0.00 Platelet Estimate Normal Hypochromasia 1+ Microcytosis 1+ Sodium 138 Potassium 3.9 Chloride 102 Carbon Dioxide 29 Anion Gap 10.9 BUN 22 H Creatinine 0.90 GFR Calculation 123 BUN/Creatinine Ratio 24.00 H Glucose 112 H POC Glucose 173 H Calculated Osmolality 278.7 Calcium 8.0 L Magnesium 2.1 Total Bilirubin 0.90 Direct Bilirubin 0.20 Indirect Bilirubin 0.7 AST 19 ALT 33 Alkaline Phosphatase 72 Total Creatine Kinase 84 CK-MB (CK-2) < 1.0 Troponin I 0.485 H D Total Protein 5.6 L Albumin 2.6 L Globulin 3.0 Albumin/Globulin Ratio 0.8 L Quality Measures - VTE Contraindication to Pharmacological VTE Prophylaxis: High Risk of Bleeding Specialty Discharge - Follow Up or Referrals
[2016-12-21] MEDS: ASPIRIN 325 MG TABLET PO SCH (09:58)
[2016-12-21] MEDS: DOCUSATE SODIUM 100 MG CAPSULE PO SCH (09:58)
[2016-12-21] MEDS: PANTOPRAZOLE 40 MG TABLET PO SCH (09:58)
[2016-12-21] MEDS: GLIMEPIRIDE 4 MG TABLET PO SCH (09:58)
[2016-12-21] MEDS: ASPIRIN EC 325 MG TABLET PO SCH (09:59)
[2016-12-21] MEDS: FERROUS SULFATE 325 MG TABLET PO SCH (09:59)
[2016-12-21] MEDS: amLODIPine 2.5 MG TABLET PO SCH (09:59)
[2016-12-21] MEDS: INSULIN REGULAR 100 UNIT/ML SUBCUT SCH ×4 (09:59→21:14)
--- NOTE | 2016-12-21 10:58 | XRay Report ---
History: Shortness of breath Date: 12/21/2016 Study: Chest x-ray AP portable Comparison exam: 12/20/2016 The right IJ central line is in stable satisfactory position. There is stable mild cardiomegaly. The mediastinal contours are unchanged. The patient is status post prior median sternotomy. The pulmonary vasculature is not engorged. There is continued left greater than right bibasilar atelectasis, slightly improved. There is mild left pleural effusion as before. There is no new or worsening pulmonary infiltrate. There is no pneumothorax. Osseous structures are unchanged. Impression: Slightly improved bibasilar atelectasis compared to the previous study. No adverse interval change PROCEDURE INTERPRETED AT [facility] DEPARTMENT OF RADIOLOGY Final Report Signed by: Dr. Halie Clark
--- NOTE | 2016-12-21 13:45 | Hospitalist Progress Note ---
Assessment and Plan (1) Diabetes Status: Acute Assessment and plan: The patient is admitted to the hospital for bypass grafting. Blood glucose control is improved with oral antidiabetic medications. We will continue observation of glucometers and give sliding scale as required Current Visit: Yes Qualifiers: Diabetes mellitus type: type 2 Diabetes mellitus complication status: with hyperglycemia Diabetes mellitus solderer insulin use: without solderer use Qualified Code(s): E11.65 - Type 2 diabetes mellitus with hyperglycemia (2) Status post coronary artery bypass graft Status: Acute Current Visit: Yes Hospitalist: Subjective Interval history: Mr. Blanco is making satisfactory progress with strength following bypass surgery. Blood glucose control is reasonable. Exam - Constitutional Vitals: Period Temp Pulse Resp BP Sys/Meza Pulse Ox Last 24 Hr 98.3 F-99.2 F 83-94 18-20 112-137/68-82 91-99 Exam: Constitutional System: Mild distress. No tremulousness. Head: Normocephalic, atraumatic. Ears, Nose and Throat System: No evidence of Otitis or Mastoiditis. No epistaxis or discharge Eyes System: Pupils equal, round, and reactive. Extraocular muscles intact. Neck: Supple, Respiratory System: Chest clear to auscultation. Recent thoracotomy Cardiovascular System: Heart with regular rate and rhythm. No murmur. GI System: Abdomen soft, nontender. Normo active bowel sounds present. Musculoskeletal System: limbs with no pedal edema. Full distal pulses. Neurological System: No discernable sensory deficit. Results - Labs CBC & BMP: 12/21/16 05:20 12/21/16 05:20 Lab Results: I have reviewed the past 24 hour labs Quality Measures - VTE Contraindication to Pharmacological VTE Prophylaxis: High Risk of Bleeding Specialty Discharge - Follow Up or Referrals
[2016-12-21] MEDS: CHLORHEXIDINE 0.12% ORAL RINSE 60 ML BOTTLE SWISH/SPIT SCH ×2 (13:58→21:14)
[2016-12-21] MEDS: ATORVASTATIN 40 MG TABLET PO SCH (21:14)
--- NOTE | 2016-12-22 06:15 | Cardiothoracic Progress Note ---
Cardiothoracic Subjective Interval history: Patient had a comfortable night. He is afebrile and his vital signs are stable. He remains in sinus rhythm. We are gradually increasing his activity according to routine postoperative protocol. Overall his progress seems satisfactory. Exam (Progress Note) - Constitutional Vitals: Period Temp Pulse Resp BP Sys/Meza Pulse Ox Last 24 Hr 97.9 F-98.9 F 84-94 18-20 112-135/68-78 93-97 Result/EKG - Labs CBC & BMP: 12/21/16 05:20 12/21/16 05:20 Labs: Laboratory Results - last 24 hr 12/21/16 12/21/16 12/21/16 05:20 07:49 11:37 WBC 8.2 RBC 4.14 Hgb 11.4 L Hct 36.5 L MCV 88.2 MCH 28 MCHC 31.2 L RDW 14.1 Plt Count 237 MPV 9.5 L Neut % (Auto) 55.7 Lymph % (Auto) 23.1 [place] % (Auto) 15.1 H Eos % (Auto) 5.4 Baso % (Auto) 0.5 Neut # (Auto) 4.5 Lymph # (Auto) 1.9 [place] # (Auto) 1.2 H Eos # (Auto) 0.4 Baso # (Auto) 0.0 Immature Gran % 0.2 Nucleated RBC % 0.0 Immature Gran # 0.02 Nucleated RBCs # 0.00 Platelet Estimate Normal Hypochromasia 1+ Microcytosis 1+ POC Glucose 97 207 H 12/21/16 12/21/16 17:04 21:10 WBC RBC Hgb Hct MCV MCH MCHC RDW Plt Count MPV Neut % (Auto) Lymph % (Auto) [place] % (Auto) Eos % (Auto) Baso % (Auto) Neut # (Auto) Lymph # (Auto) [place] # (Auto) Eos # (Auto) Baso # (Auto) Immature Gran % Nucleated RBC % Immature Gran # Nucleated RBCs # Platelet Estimate Hypochromasia Microcytosis POC Glucose 205 H 232 H Quality Measures - VTE Contraindication to Pharmacological VTE Prophylaxis: High Risk of Bleeding Specialty Discharge - Follow Up or Referrals
[2016-12-22] MEDS: INSULIN REGULAR 100 UNIT/ML SUBCUT SCH ×4 (08:26→21:54)
[2016-12-22] MEDS: FERROUS SULFATE 325 MG TABLET PO SCH (08:28)
[2016-12-22] MEDS: GLIMEPIRIDE 4 MG TABLET PO SCH (09:22)
[2016-12-22] MEDS: amLODIPine 2.5 MG TABLET PO SCH (09:22)
[2016-12-22] MEDS: DOCUSATE SODIUM 100 MG CAPSULE PO SCH (09:22)
[2016-12-22] MEDS: ASPIRIN EC 325 MG TABLET PO SCH (09:22)
[2016-12-22] MEDS: PANTOPRAZOLE 40 MG TABLET PO SCH (09:22)
[2016-12-22] MEDS: CHLORHEXIDINE 0.12% ORAL RINSE 60 ML BOTTLE SWISH/SPIT SCH ×2 (09:23→21:52)
[2016-12-22] MEDS: ASPIRIN 325 MG TABLET PO SCH (09:24)
--- NOTE | 2016-12-22 09:48 | Hospitalist Progress Note ---
Assessment and Plan (1) Status post coronary artery bypass graft Status: Acute Assessment and plan: Stable day 5 status post coronary artery bypass graft surgery. Current Visit: Yes (2) Diabetes Status: Acute Assessment and plan: Stable with blood glucose 91 on glimepiride and sliding scale regular insulin coverage. Current Visit: Yes Qualifiers: Diabetes mellitus type: type 2 Diabetes mellitus complication status: with hyperglycemia Diabetes mellitus mcc insulin use: without mcc use Qualified Code(s): E11.65 - Type 2 diabetes mellitus with hyperglycemia (3) Hypertension Status: Acute Assessment and plan: Stable with blood pressure 129/82. He is presently on amlodipine 2.5 mg p.o. daily. Current Visit: Yes Qualifiers: Hypertension type: essential hypertension Qualified Code(s): I10 - Essential (primary) hypertension Hospitalist: Subjective Interval history: Mr. Blanco is doing well today. He states that he is not experiencing any pain or shortness of breath. His blood glucose today was 91. He continues on glimepiride and sliding scale regular insulin coverage. Exam - Constitutional Vitals: Period Temp Pulse Resp BP Sys/Meza Pulse Ox Last 24 Hr 97.9 F-98.9 F 84-94 18-20 112-135/70-82 92-94 General appearance: no acute distress - Head Head exam: Present: normal inspection, normocephalic - Eye Eye exam: Present: EOMI Pupils: Present: JYOTHI - Neck Neck exam: Present: normal inspection - Respiratory Respiratory exam: Present: clear to auscultation bilaterally, decreased breath sounds (bibasilar) - Cardiovascular Cardiovascular exam: Present: regular rate and rhythm - GI/Abdominal GI/Abdominal exam: Present: normal bowel sounds, soft - Extremities Exam Extremities exam: Present: normal inspection - Neurological Exam Neurological exam: Present: alert, oriented X3 - Psychiatric Psychiatric exam: Present: normal affect, normal mood - Skin Skin exam: Present: normal color, warm, dry Results - Labs CBC & BMP: 12/21/16 05:20 12/21/16 05:20 Quality Measures - VTE Contraindication to Pharmacological VTE Prophylaxis: High Risk of Bleeding Specialty Discharge - Follow Up or Referrals
[2016-12-22] MEDS: ATORVASTATIN 40 MG TABLET PO SCH (21:53)
[2016-12-23 06:25] LABS: Basophils # 0.1 10*3/uL (0.0-0.2); Basophils % 0.6 % (0.0-0.8); Eosinophils # 0.5 10*3/uL (0.0-0.87); Eosinophils % 5.9 % (0.00-10.9); Hematocrit 34.7 VOL% (42.0-52.0); Hemoglobin 11.1 GM/DL (14.0-18.0); Immature Granulocytes % 0.8 %; Immature Granulocytes Absolute 0.07 #; Lymphocytes # 2.4 10*3/uL (1.4-4.0); Lymphocytes % 26.8 % (21.2-54.2); Mean Corpuscular Hemoglobin 27 PG (27-34); Mean Corpuscular Volume 85.3 FL (87-102); Mean Platelet Volume 9.5 FL (9.6-12.0); Monocytes # 1.3 10*3/uL (0.11-0.8); Monocytes % 13.8 % (1.7-12.7); Neutrophils # 4.7 10*3/uL (1.4-7.4); Neutrophils % 52.1 % (38.7-73.9); Platelet Count 256 T/CUMM (130-400); Red Blood Count 4.07 MC/CUMM (3.8-5.5)
--- NOTE | 2016-12-23 06:32 | Cardiothoracic Progress Note ---
Cardiothoracic Subjective Interval history: Patient had a fairly comfortable night. Vital signs have been stable and is breathing comfortably. Main complaint is constipation. We will try to deal with this today with laxatives or an enema if needed. Overall his progress is satisfactory. Exam (Progress Note) - Constitutional Vitals: Period Temp Pulse Resp BP Sys/Meza Pulse Ox Last 24 Hr 97.7 F-98.9 F 85-94 18-20 114-138/72-93 18-95 Result/EKG - Labs CBC & BMP: 12/23/16 05:55 12/21/16 05:20 Labs: Laboratory Results - last 24 hr 12/22/16 12/22/16 12/22/16 07:30 11:27 15:40 WBC RBC Hgb Hct MCV MCH MCHC RDW Plt Count MPV Neut % (Auto) Lymph % (Auto) [place] % (Auto) Eos % (Auto) Baso % (Auto) Neut # (Auto) Lymph # (Auto) [place] # (Auto) Eos # (Auto) Baso # (Auto) Immature Gran % Nucleated RBC % Immature Gran # Nucleated RBCs # POC Glucose 91 194 H 257 H 12/22/16 12/23/16 21:02 05:55 WBC 9.0 RBC 4.07 Hgb 11.1 L Hct 34.7 L MCV 85.3 L MCH 27 MCHC 32.0 RDW 14.0 Plt Count 256 MPV 9.5 L Neut % (Auto) 52.1 Lymph % (Auto) 26.8 [place] % (Auto) 13.8 H Eos % (Auto) 5.9 Baso % (Auto) 0.6 Neut # (Auto) 4.7 Lymph # (Auto) 2.4 [place] # (Auto) 1.3 H Eos # (Auto) 0.5 Baso # (Auto) 0.1 Immature Gran % 0.8 Nucleated RBC % 0.0 Immature Gran # 0.07 Nucleated RBCs # 0.00 POC Glucose 246 H Quality Measures - VTE Contraindication to Pharmacological VTE Prophylaxis: High Risk of Bleeding Specialty Discharge - Follow Up or Referrals
[2016-12-23 07:10] LABS: Alanine Aminotransferase 31 U/L (16-61); Albumin 2.5 G/DL (3.4-5.0); Alkaline Phosphatase 74 U/L (45-117); Aspartate Amino Transferase 16 U/L (0-37); Bilirubin,Indirect 0.7 MG/DL (0.0-1.0); Blood Urea Nitrogen 14 MG/DL (7-18); Calcium 7.9 MG/DL (8.5-10.1); Glucose 97 MG/DL (74-106); Magnesium 2.1 MG/DL (1.8-2.4); Osmolality,Calculated 279.4 MOS/KG (273-304); Potassium 4.1 MMOL/L (3.5-5.1); Sodium 140 MMOL/L (136-145); Total Protein 5.7 G/DL (6.4-8.3)
[2016-12-23 07:11] LABS: Troponin I Only 0.252 NG/ML (0.00-0.045)
--- NOTE | 2016-12-23 07:29 | XRay Report ---
2 view chest. Indication: Shortness of breath. Comparison: December 21, 2016. The heart is enlarged with left ventricular hypertrophy. There is median sternotomy. The pulmonary vasculature is normal. Mild hypoaeration or scarring is seen at the left lung base. Air bronchograms and opacification is noted at the left lung base with a pleural effusion present. Right IJ line is in the right atrium. Degenerative changes of the spinal column and shoulders. Impression: Stable appearance of the chest. Pneumonia and pleural effusion at the left base. PROCEDURE INTERPRETED AT [facility] DEPARTMENT OF RADIOLOGY Final Report Signed by: Dr. Celia Pinzon
[2016-12-23] MEDS: INSULIN REGULAR 100 UNIT/ML SUBCUT SCH ×4 (08:03→21:38)
[2016-12-23] MEDS: MAGNESIUM HYDROXIDE SUSP 30 ML UDCUP PO PRN (08:18)
[2016-12-23] MEDS: GLIMEPIRIDE 4 MG TABLET PO SCH (08:18)
[2016-12-23] MEDS: amLODIPine 2.5 MG TABLET PO SCH (08:19)
[2016-12-23] MEDS: PANTOPRAZOLE 40 MG TABLET PO SCH (08:19)
[2016-12-23] MEDS: ASPIRIN EC 325 MG TABLET PO SCH (08:19)
[2016-12-23] MEDS: DOCUSATE SODIUM 100 MG CAPSULE PO SCH (08:19)
[2016-12-23] MEDS: FERROUS SULFATE 325 MG TABLET PO SCH (08:23)
[2016-12-23] MEDS: CHLORHEXIDINE 0.12% ORAL RINSE 60 ML BOTTLE SWISH/SPIT SCH ×2 (08:29→21:38)
--- NOTE | 2016-12-23 11:10 | Hospitalist Progress Note ---
Assessment and Plan (1) Status post coronary artery bypass graft Status: Acute Assessment and plan: Stable day 6 status post coronary artery bypass graft surgery. Current Visit: Yes (2) Diabetes Status: Acute Assessment and plan: Stable with blood glucose 112 on glimepiride and sliding scale regular insulin coverage. Current Visit: Yes Qualifiers: Diabetes mellitus type: type 2 Diabetes mellitus complication status: with hyperglycemia Diabetes mellitus penitentiary insulin use: without adjunct faculty for medical terminology use Qualified Code(s): E11.65 - Type 2 diabetes mellitus with hyperglycemia (3) Hypertension Status: Acute Assessment and plan: Stable with blood pressure 138/76. He is presently on amlodipine 2.5 mg p.o. daily. Current Visit: Yes Qualifiers: Hypertension type: essential hypertension Qualified Code(s): I10 - Essential (primary) hypertension Hospitalist: Subjective Interval history: Mr. Blanco is doing well with no complaints. He is experiencing only mild postoperative pain. He is not experiencing shortness of breath. He is undergoing physical therapy. His blood glucoses have been between 112 to 197. He continues on glimepiride and sliding scale regular insulin coverage. Exam - Constitutional Vitals: Period Temp Pulse Resp BP Sys/Meza Pulse Ox Last 24 Hr 97.7 F-99 F 84-92 18-20 114-158/72-93 18-95 General appearance: no acute distress - Head Head exam: Present: normal inspection, normocephalic - Eye Eye exam: Present: EOMI Pupils: Present: JYOTHI - Neck Neck exam: Present: normal inspection - Respiratory Respiratory exam: Present: decreased breath sounds - Cardiovascular Cardiovascular exam: Present: regular rate and rhythm - GI/Abdominal GI/Abdominal exam: Present: normal bowel sounds, soft - Extremities Exam Extremities exam: Present: normal inspection - Back Exam Back exam: Present: normal inspection - Neurological Exam Neurological exam: Present: alert, oriented X3 - Psychiatric Psychiatric exam: Present: normal affect, normal mood - Skin Skin exam: Present: normal color, warm, dry Results - Labs CBC & BMP: 12/23/16 05:55 12/23/16 05:55 Quality Measures - VTE Contraindication to Pharmacological VTE Prophylaxis: High Risk of Bleeding Specialty Discharge - Follow Up or Referrals
[2016-12-23] MEDS: ATORVASTATIN 40 MG TABLET PO SCH (21:38)
[2016-12-24 04:32] LABS: Basophils % 0.3 % (0.0-0.8); Eosinophils # 0.5 10*3/uL (0.0-0.87); Eosinophils % 5.9 % (0.00-10.9); Hematocrit 32.9 VOL% (42.0-52.0); Hemoglobin 10.8 GM/DL (14.0-18.0); Immature Granulocytes % 0.8 %; Immature Granulocytes Absolute 0.07 #; Lymphocytes # 2.2 10*3/uL (1.4-4.0); Lymphocytes % 24.2 % (21.2-54.2); Mean Corpuscular HGB Conc 32.8 GM/DL (32-36); Mean Corpuscular Hemoglobin 28 PG (27-34); Mean Corpuscular Volume 84.8 FL (87-102); Mean Platelet Volume 9.5 FL (9.6-12.0); Monocytes # 1.2 10*3/uL (0.11-0.8); Monocytes % 13.3 % (1.7-12.7); Neutrophils # 5.1 10*3/uL (1.4-7.4); Neutrophils % 55.5 % (38.7-73.9); Platelet Count 262 T/CUMM (130-400); Red Blood Count 3.88 MC/CUMM (3.8-5.5); White Blood Count 9.1 T/CUMM (4-12)
[2016-12-24 05:02] LABS: Alanine Aminotransferase 30 U/L (16-61); Albumin 2.5 G/DL (3.4-5.0); Alkaline Phosphatase 74 U/L (45-117); Aspartate Amino Transferase 14 U/L (0-37); Bilirubin,Indirect 0.6 MG/DL (0.0-1.0); Blood Urea Nitrogen 12 MG/DL (7-18); Glucose 149 MG/DL (74-106); Magnesium 2.1 MG/DL (1.8-2.4); Osmolality,Calculated 277.7 MOS/KG (273-304); Potassium 4.2 MMOL/L (3.5-5.1); Sodium 138 MMOL/L (136-145); Total Protein 5.7 G/DL (6.4-8.3)
[2016-12-24 05:04] LABS: Troponin I Only 0.192 NG/ML (0.00-0.045)
--- NOTE | 2016-12-24 06:32 | Cardiothoracic Progress Note ---
Cardiothoracic Subjective Interval history: No real problems other than mild constipation. He is getting laxatives for this. Vital signs have been stable and is breathing comfortably and is ambulating without assistance. I think he probably will be ready for discharge tomorrow morning. Exam (Progress Note) - Constitutional Vitals: Period Temp Pulse Resp BP Sys/Meza Pulse Ox Last 24 Hr 98 F-99.2 F 61-91 18-20 115-174/83-94 94-98 Result/EKG - Labs CBC & BMP: 12/24/16 04:15 12/24/16 04:15 Labs: Laboratory Results - last 24 hr 12/23/16 12/23/16 12/23/16 05:55 07:52 12:02 WBC RBC Hgb Hct MCV MCH MCHC RDW Plt Count MPV Neut % (Auto) Lymph % (Auto) [place] % (Auto) Eos % (Auto) Baso % (Auto) Neut # (Auto) Lymph # (Auto) [place] # (Auto) Eos # (Auto) Baso # (Auto) Immature Gran % Nucleated RBC % Immature Gran # Nucleated RBCs # Sodium 140 Potassium 4.1 Chloride 104 Carbon Dioxide 28 Anion Gap 12.1 BUN 14 Creatinine 0.90 GFR Calculation 128 BUN/Creatinine Ratio 15.00 Glucose 97 POC Glucose 112 H 211 H Calculated Osmolality 279.4 Calcium 7.9 L Magnesium 2.1 Total Bilirubin 0.90 Direct Bilirubin 0.20 Indirect Bilirubin 0.7 AST 16 ALT 31 Alkaline Phosphatase 74 Total Creatine Kinase 42 D CK-MB (CK-2) < 1.0 Troponin I 0.252 H D Total Protein 5.7 L Albumin 2.5 L Globulin 3.2 Albumin/Globulin Ratio 0.7 L 12/23/16 12/23/16 12/24/16 15:51 20:09 04:15 WBC 9.1 RBC 3.88 Hgb 10.8 L Hct 32.9 L MCV 84.8 L MCH 28 MCHC 32.8 RDW 14.0 Plt Count 262 MPV 9.5 L Neut % (Auto) 55.5 Lymph % (Auto) 24.2 [place] % (Auto) 13.3 H Eos % (Auto) 5.9 Baso % (Auto) 0.3 Neut # (Auto) 5.1 Lymph # (Auto) 2.2 [place] # (Auto) 1.2 H Eos # (Auto) 0.5 Baso # (Auto) 0.0 Immature Gran % 0.8 Nucleated RBC % 0.0 Immature Gran # 0.07 Nucleated RBCs # 0.00 Sodium Potassium Chloride Carbon Dioxide Anion Gap BUN Creatinine GFR Calculation BUN/Creatinine Ratio Glucose POC Glucose 185 H 193 H Calculated Osmolality Calcium Magnesium Total Bilirubin Direct Bilirubin Indirect Bilirubin AST ALT Alkaline Phosphatase Total Creatine Kinase CK-MB (CK-2) Troponin I Total Protein Albumin Globulin Albumin/Globulin Ratio 12/24/16 04:15 WBC RBC Hgb Hct MCV MCH MCHC RDW Plt Count MPV Neut % (Auto) Lymph % (Auto) [place] % (Auto) Eos % (Auto) Baso % (Auto) Neut # (Auto) Lymph # (Auto) [place] # (Auto) Eos # (Auto) Baso # (Auto) Immature Gran % Nucleated RBC % Immature Gran # Nucleated RBCs # Sodium 138 Potassium 4.2 Chloride 103 Carbon Dioxide 30 Anion Gap 9.2 BUN 12 Creatinine 0.90 GFR Calculation 128 BUN/Creatinine Ratio 13.00 Glucose 149 H POC Glucose Calculated Osmolality 277.7 Calcium 8.0 L Magnesium 2.1 Total Bilirubin 0.80 Direct Bilirubin 0.20 Indirect Bilirubin 0.6 AST 14 ALT 30 Alkaline Phosphatase 74 Total Creatine Kinase 37 L CK-MB (CK-2) < 1.0 Troponin I 0.192 H D Total Protein 5.7 L Albumin 2.5 L Globulin 3.2 Albumin/Globulin Ratio 0.7 L Quality Measures - VTE Contraindication to Pharmacological VTE Prophylaxis: High Risk of Bleeding Specialty Discharge - Follow Up or Referrals
[2016-12-24] MEDS: MAGNESIUM HYDROXIDE SUSP 30 ML UDCUP PO PRN (07:07)
--- NOTE | 2016-12-24 07:36 | XRay Report ---
XR chest 2V Indication: Shortness of breath. Comparison: Chest x-ray 12/23/2016 Technique: PA and lateral chest x-ray was performed. Findings: The heart size appears borderline, stable. Prior sternotomy is stable. The mediastinal contour and hilar structures demonstrate no significant abnormalities. Left lower lobe atelectasis and air bronchogram formation is stable. Blunting left costophrenic angle compatible small left pleural effusion is stable. Right lung is clear. Bones and soft tissues demonstrate no evidence of acute pathology. Impression: 1. Persistent atelectatic change and/or consolidation left lower lobe. 2. Minimal left-sided pleural effusion. 12/24/2016 7:33 AM PROCEDURE INTERPRETED AT [facility] DEPARTMENT OF RADIOLOGY Final Report Signed by: Dr. Jorge L Mann
--- NOTE | 2016-12-24 08:03 | EKG Report ---
Stationary ECG Study [facility] Test Date: 12/24/2016 8:04:03 AM Pat Name: DOMINGA AGARWAL Department: Room: 268 Gender: M [employer] Officer: MIKHAIL : 1945 Requested by: Isiah Sanchez Order Number: [id number] Reading MD: RASHIDA ADRIAN Intervals [place] Rate: 95 P: 33 MN: 188 QRS: -48 QRSD: 108 T: 17 QT: 356 QTc: 409 Interpretive Statements SINUS RHYTHM LEFT ATRIAL ENLARGEMENT POSSIBLE LEFT VENTRICULAR HYPERTROPHY POSSIBLE ANTERIOR MYOCARDIAL INFARCTION, OF INDETERMINATE AGE INFERIOR MYOCARDIAL INFARCTION, OF INDETERMINATE AGE Electronically Signed On 12-26-16 13:17:31 CDT by RASHIDA ADRIAN [email or web address]
[2016-12-24] MEDS: INSULIN REGULAR 100 UNIT/ML SUBCUT SCH ×4 (08:46→22:06)
[2016-12-24] MEDS: PANTOPRAZOLE 40 MG TABLET PO SCH (09:06)
[2016-12-24] MEDS: ASPIRIN EC 325 MG TABLET PO SCH (09:06)
[2016-12-24] MEDS: DOCUSATE SODIUM 100 MG CAPSULE PO SCH (09:06)
[2016-12-24] MEDS: GLIMEPIRIDE 4 MG TABLET PO SCH (09:06)
[2016-12-24] MEDS: amLODIPine 2.5 MG TABLET PO SCH (09:06)
[2016-12-24] MEDS: FERROUS SULFATE 325 MG TABLET PO SCH (09:07)
[2016-12-24] MEDS: CHLORHEXIDINE 0.12% ORAL RINSE 60 ML BOTTLE SWISH/SPIT SCH ×2 (09:07→22:06)
--- NOTE | 2016-12-24 10:57 | Hospitalist Progress Note ---
Assessment and Plan (1) Status post coronary artery bypass graft Status: Acute Assessment and plan: Stable day 7 status post coronary artery bypass graft surgery. Current Visit: Yes (2) Diabetes Status: Acute Assessment and plan: Stable with blood glucose 161 on glimepiride and sliding scale regular insulin coverage. Current Visit: Yes Qualifiers: Diabetes mellitus type: type 2 Diabetes mellitus complication status: with hyperglycemia Diabetes mellitus halfway insulin use: without buttermaker use Qualified Code(s): E11.65 - Type 2 diabetes mellitus with hyperglycemia (3) Hypertension Status: Acute Assessment and plan: Stable with blood pressure 143/82. He is presently on amlodipine 2.5 mg p.o. daily. Current Visit: Yes Qualifiers: Hypertension type: essential hypertension Qualified Code(s): I10 - Essential (primary) hypertension Hospitalist: Subjective Interval history: Mr. Blanco is day 7 status post coronary artery bypass graft surgery. He is doing well. He is actively engaging physical therapy. He has minimal postoperative incisional pain. Exam - Constitutional Vitals: Period Temp Pulse Resp BP Sys/Meza Pulse Ox Last 24 Hr 98 F-99.2 F 61-95 18-20 115-174/82-94 94-98 General appearance: no acute distress - Head Head exam: Present: normal inspection, normocephalic - Eye Eye exam: Present: EOMI Pupils: Present: JYOTHI - Neck Neck exam: Present: normal inspection - Respiratory Respiratory exam: Present: decreased breath sounds - Cardiovascular Cardiovascular exam: Present: regular rate and rhythm - GI/Abdominal GI/Abdominal exam: Present: normal bowel sounds, soft - Extremities Exam Extremities exam: Present: normal inspection - Skin Skin exam: Present: normal color, warm, dry Results - Labs CBC & BMP: 12/24/16 04:15 12/24/16 04:15 Quality Measures - VTE Contraindication to Pharmacological VTE Prophylaxis: High Risk of Bleeding Specialty Discharge - Follow Up or Referrals
[2016-12-24] MEDS: ATORVASTATIN 40 MG TABLET PO SCH (22:07)
[2016-12-25] MEDS ORDERED: LACTULOSE 20 GM/30 ML UDCUP PO PRN ×2 (07:55→14:19)
--- NOTE | 2016-12-25 08:00 | Cardiothoracic Progress Note ---
Cardiothoracic Subjective Interval history: Patient looks and feels okay although he is still constipated. We will try to work on this today as the patient is otherwise doing well and is approaching discharge. Hopefully he can be discharged in the morning if we can correct his constipation. Exam (Progress Note) - Constitutional Vitals: Period Temp Pulse Resp BP Sys/Meza Pulse Ox Last 24 Hr 98 F-99 F 80-89 16-20 118-150/73-85 94-97 Result/EKG - Labs CBC & BMP: 12/24/16 04:15 12/24/16 04:15 Labs: Laboratory Results - last 24 hr 12/24/16 12/24/16 12/24/16 11:21 15:58 20:09 POC Glucose 218 H 227 H 165 H 12/25/16 07:32 POC Glucose 143 H Quality Measures - VTE Contraindication to Pharmacological VTE Prophylaxis: High Risk of Bleeding Specialty Discharge - Follow Up or Referrals
[2016-12-25] MEDS: FERROUS SULFATE 325 MG TABLET PO SCH (08:44)
[2016-12-25] MEDS: INSULIN REGULAR 100 UNIT/ML SUBCUT SCH ×4 (08:44→21:17)
[2016-12-25] MEDS: amLODIPine 2.5 MG TABLET PO SCH (08:47)
[2016-12-25] MEDS: DOCUSATE SODIUM 100 MG CAPSULE PO SCH (08:48)
[2016-12-25] MEDS: ASPIRIN EC 325 MG TABLET PO SCH (08:48)
[2016-12-25] MEDS: PANTOPRAZOLE 40 MG TABLET PO SCH (08:48)
[2016-12-25] MEDS: GLIMEPIRIDE 4 MG TABLET PO SCH (08:48)
[2016-12-25] MEDS: CHLORHEXIDINE 0.12% ORAL RINSE 60 ML BOTTLE SWISH/SPIT SCH ×2 (08:52→21:18)
--- NOTE | 2016-12-25 09:50 | Hospitalist Progress Note ---
Assessment and Plan (1) Status post coronary artery bypass graft Status: Acute Assessment and plan: Stable day 8 status post coronary artery bypass graft surgery. Current Visit: Yes (2) Diabetes Status: Acute Assessment and plan: Stable with blood glucose 143 on glimepiride and sliding scale regular insulin coverage. Current Visit: Yes Qualifiers: Diabetes mellitus type: type 2 Diabetes mellitus complication status: with hyperglycemia Diabetes mellitus custodial insulin use: without flexographic press operator use Qualified Code(s): E11.65 - Type 2 diabetes mellitus with hyperglycemia (3) Hypertension Status: Acute Assessment and plan: Stable with blood pressure 150/85. He is presently on amlodipine 2.5 mg p.o. daily. Current Visit: Yes Qualifiers: Hypertension type: essential hypertension Qualified Code(s): I10 - Essential (primary) hypertension Hospitalist: Subjective Interval history: Mr. Blanco is doing well. His only complaint today is that of constipation for which she has received a laxative today. His glucose today is 143. Exam - Constitutional Vitals: Period Temp Pulse Resp BP Sys/Meza Pulse Ox Last 24 Hr 98 F-99 F 80-89 16-20 118-150/73-85 94-97 General appearance: no acute distress - Head Head exam: Present: normal inspection, normocephalic - Eye Eye exam: Present: EOMI Pupils: Present: JYOTHI - Neck Neck exam: Present: normal inspection - Respiratory Respiratory exam: Present: decreased breath sounds - Cardiovascular Cardiovascular exam: Present: regular rate and rhythm - GI/Abdominal GI/Abdominal exam: Present: normal bowel sounds, soft (Nontender with no palpable masses or hepatosplenomegaly.) - Extremities Exam Extremities exam: Present: normal inspection - Neurological Exam Neurological exam: Present: alert, oriented X3 - Psychiatric Psychiatric exam: Present: normal affect, normal mood - Skin Skin exam: Present: normal color, warm, dry Results - Labs CBC & BMP: 12/24/16 04:15 12/24/16 04:15 Quality Measures - VTE Contraindication to Pharmacological VTE Prophylaxis: High Risk of Bleeding Specialty Discharge - Follow Up or Referrals
[2016-12-25] MEDS: ATORVASTATIN 40 MG TABLET PO SCH (21:17)
--- NOTE | 2016-12-26 06:34 | Discharge Summary ---
Hospital Course - Hospital Course Hospital Course: History of present illness: Patient is a 71-year-old man who was visiting [facility] from [place] when he developed substernal chest discomfort shortness of breath. He was admitted to [facility] were an initial diagnosis of pneumonia was made and he was admitted to the hospital for appropriate treatment. During the course of his initial workup he reported having increasing chest discomfort and was evaluated by cardiology and found to have severe coronary artery disease. Patient was referred for bypass surgery. Past medical history review of systems social history and family history are documented in his admission note. Hospital course: Patient was taken to surgery and underwent coronary bypass grafting without incident. His postoperative course was essentially uncomplicated and he was discharged home on the ninth postoperative day with instructions to return for follow-up in 1 month. His discharge medications are listed below. Specialty Discharge - Follow Up or Referrals Discharge Plan - Discharge Medications No Action Furosemide [Lasix] 40 mg PO DAILY Aspirin 325 mg PO DAILY Glimepiride 4 mg PO DAILY amLODIPine [Norvasc] 2.5 mg PO DAILY Atorvastatin [Lipitor] 40 mg PO BEDTIME - Follow Up or Referral - Forms/Instructions Instructions: Heart Healthy Diet (GEN), Coronary Artery Bypass Graft, Charge Entry Clerk (GEN), Sternal Precautions (GEN) Exam - Constitutional Vitals: Period Temp Pulse Resp BP Sys/Meza Pulse Ox Last 24 Hr 98 F-98.9 F 74-84 18-20 114-161/68-90 90-97 Discharge Results Procedures and tests throughout hospitalization: Pending Orders 12/16/16 09:16 Fresh Frozen Plasma Routine Red Blood Cells Leuko Red Routine Single Donor Platelets Routine Type and Screen Routine Labs on day of discharge: Labs from last 24 hours 12/25/16 12/25/16 12/25/16 19:52 16:12 11:48 POC Glucose 150 H 184 H 261 H 12/25/16 07:32 POC Glucose 143 H DS: Provider Date of admission: 12/15/16 13:53 Primary care physician: Isiah Conner MD Attending physician on admission: Isiah Conner MD Consults: 12/19/16 06:15 Consult to Cardiac Rehabilitation [CONS] Routine Reason for Cardiac Rehabilitation: Other Consult Comment: Post CABG/heart surgery Consult to Diabetes Center, Educator [CONS] Routine Reason for Middle School Guidance Counselor: Diabetes Education Initial Insulin Education Consult Comment: insulin education Consult to Dietitian [CONS] Routine Reason for Dietitian: Dietary Consult Consult Comment: Cardiac, low salt, low cholesterol diet Consult to Physical Therapy [CONS] Routine Reason for Physical Therapy: Other Consult Comment: CV Rehab Consult to Physician [CONS] Routine Comment: Management of diabetes Consulting Provider: Consult to Specialist Group: Hospitalist Discharging clinician: Isiah Conner MD Expected date of discharge: 12/26/16
--- NOTE | 2016-12-26 06:37 | Discharge Summary ---
Specialty Discharge - Follow Up or Referrals Follow up with: Isiah Conner MD [Primary Care Provider] - 2 Weeks Discharge Plan - Discharge Data Condition at Discharge: Stable Discharge Diet: advance to your usual diet Activity: resume usual activities as tolerated Hygiene: no restrictions Weight Bearing at Discharge: full weight bearing Driving: not until seen by doctor - Discharge Medications New Aspirin EC Tab 325 mg PO DAILY tablet Atorvastatin [Lipitor] 40 mg PO BEDTIME tablet Continue Furosemide [Lasix] 40 mg PO DAILY Aspirin 325 mg PO DAILY Glimepiride 4 mg PO DAILY amLODIPine [Norvasc] 2.5 mg PO DAILY Atorvastatin [Lipitor] 40 mg PO BEDTIME - Follow Up or Referral - Forms/Instructions Instructions: Heart Healthy Diet (GEN), Coronary Artery Bypass Graft, Butcher Meat (GEN), Sternal Precautions (GEN) Exam - Constitutional Vitals: Period Temp Pulse Resp BP Sys/Meza Pulse Ox Last 24 Hr 98 F-98.9 F 74-84 18-20 114-161/68-90 90-97 Discharge Results Procedures and tests throughout hospitalization: Pending Orders 12/16/16 09:16 Fresh Frozen Plasma Routine Red Blood Cells Leuko Red Routine Single Donor Platelets Routine Type and Screen Routine Labs on day of discharge: Labs from last 24 hours 12/25/16 12/25/16 12/25/16 19:52 16:12 11:48 POC Glucose 150 H 184 H 261 H 12/25/16 07:32 POC Glucose 143 H DS: Provider Date of admission: 12/15/16 13:53 Primary care physician: Isiah Conner MD Attending physician on admission: Isiah Conner MD Consults: 12/19/16 06:15 Consult to Cardiac Rehabilitation [CONS] Routine Reason for Cardiac Rehabilitation: Other Consult Comment: Post CABG/heart surgery Consult to Diabetes Center, Educator [CONS] Routine Reason for Hotel Director: Diabetes Education Initial Insulin Education Consult Comment: insulin education Consult to Dietitian [CONS] Routine Reason for Dietitian: Dietary Consult Consult Comment: Cardiac, low salt, low cholesterol diet Consult to Physical Therapy [CONS] Routine Reason for Physical Therapy: Other Consult Comment: CV Rehab Consult to Physician [CONS] Routine Comment: Management of diabetes Consulting Provider: Consult to Specialist Group: Hospitalist Discharging clinician: Isiah Conner MD
[2016-12-26] MEDS: FERROUS SULFATE 325 MG TABLET PO SCH (08:27)
[2016-12-26] MEDS: INSULIN REGULAR 100 UNIT/ML SUBCUT SCH ×2 (08:27→12:49)
--- NOTE | 2016-12-26 08:28 | Hospitalist Progress Note ---
Assessment and Plan (1) Status post coronary artery bypass graft Status: Acute Assessment and plan: Stable day 9 status post coronary artery bypass graft surgery. Current Visit: Yes (2) Diabetes Status: Acute Assessment and plan: Stable with blood glucose 141 on glimepiride and sliding scale regular insulin coverage. 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 He is presently on amlodipine 2.5 mg p.o. daily. Current Visit: Yes Qualifiers: Hypertension type: essential hypertension Qualified Code(s): I10 - Essential (primary) hypertension Hospitalist: Subjective Interval history: Mr. Blanco is doing well. His blood glucose is well controlled at 141 today. He is to be discharged today. Exam - Constitutional Vitals: Period Temp Pulse Resp BP Sys/Meza Pulse Ox Last 24 Hr 98 F-98.9 F 74-86 18-20 114-161/68-90 90-97 General appearance: no acute distress - Head Head exam: Present: normal inspection, normocephalic - Eye Eye exam: Present: EOMI Pupils: Present: JYOTHI - Neck Neck exam: Present: normal inspection - Respiratory Respiratory exam: Present: decreased breath sounds - Cardiovascular Cardiovascular exam: Present: regular rate and rhythm - GI/Abdominal GI/Abdominal exam: Present: normal bowel sounds, soft - Extremities Exam Extremities exam: Present: normal inspection - Neurological Exam Neurological exam: Present: alert, oriented X3 - Psychiatric Psychiatric exam: Present: normal affect, normal mood - Skin Skin exam: Present: normal color, warm, dry Results - Labs CBC & BMP: 12/24/16 04:15 12/24/16 04:15 Quality Measures - VTE Contraindication to Pharmacological VTE Prophylaxis: High Risk of Bleeding Specialty Discharge - Follow Up or Referrals Follow up with: Isiah Conner MD [Primary Care Provider] - 01/27/17 10:30 am
[2016-12-26] MEDS: amLODIPine 2.5 MG TABLET PO SCH (08:50)
[2016-12-26] MEDS: ASPIRIN EC 325 MG TABLET PO SCH (08:51)
[2016-12-26] MEDS: GLIMEPIRIDE 4 MG TABLET PO SCH (08:51)
[2016-12-26] MEDS: DOCUSATE SODIUM 100 MG CAPSULE PO SCH (08:51)
[2016-12-26] MEDS: PANTOPRAZOLE 40 MG TABLET PO SCH (08:51)
[2016-12-26] MEDS: CHLORHEXIDINE 0.12% ORAL RINSE 60 ML BOTTLE SWISH/SPIT SCH (09:02)
[2016-12-26 12:17] VITALS: BP 122/78
== END 2016-12-26 14:15 | disposition home or self-care (01) | DRG 236 ==
LOC: N.TELEN 13:53 → N.CVR 12-17 11:44 → N.ICU 12-18 15:51 → N.TELES 12-19 15:05